=== PATIENT | female | born 1975 | race Caucasian/White ===

== ENCOUNTER 2024-04-06 06:48 | Outpatient (OUT) | payer BC, SELFPAY ==
[2024-04-06 07:43] LABS: Basophils Absolute Auto 0.1 10^3/uL (0.0-0.1); Basophils Percent Auto 0.7 % (0.2-2.0); Eosinophils Absolute Auto 0.6 10^3/uL (0.0-0.7); Hemoglobin 12.9 g/dL (12.0-16.0); Immature Granulocytes Abs Auto 0.03 10^3/uL (0.00-0.03); Immature Granulocytes Pct Auto 0.3 % (0.0-0.5); Lymphocytes Absolute Auto 2.4 10^3/uL (1.2-3.8); Lymphocytes Percent Auto 24.4 % (20.5-60.0); Mean Corpuscular HGB Conc 33.1 g/dL (29.9-35.2); Mean Corpuscular Hemoglobin 30.5 pg (26.7-34.0); Mean Corpuscular Volume 92.2 fL (81.0-99.0); Mean Platelet Volume 9.2 fL (9.5-13.5); Monocytes Absolute Auto 0.5 10^3/uL (0.3-0.8); Monocytes Percent Auto 5.6 % (1.7-12.0); Neutrophils Absolute Auto 6.1 10^3/uL (1.4-6.5); Platelet Count 368 10^3/uL (150-450); Red Blood Count 4.23 10^6/uL (4.20-5.40); Red Cell Distribution Width 13.1 % (11.0-15.0); White Blood Count 9.6 10^3/uL (4.0-11.0)
[2024-04-06 11:03] LABS: Estimated Average Glucose 114 mg/dL; Glycohemoglobin A1C 5.6 % (4.5-6.2)
[2024-04-06 12:16] LABS: Alanine Aminotransferase 23 U/L (14-59); Albumin Globulin Ratio 0.9; Albumin Level 3.4 g/dL (3.4-5.0); Alkaline Phosphatase 82 U/L (46-116); Anion Gap 13.5; Aspartate Amino Transferase 11 U/L (15-37); BUN Creatinine Ratio 17.5; Bilirubin Total 0.3 mg/dL (0.2-1.0); Calcium 9.2 mg/dL (8.5-10.1); Carbon Dioxide 27.4 mmol/L (21.0-32.0); Chloride 103 mmol/L (98-107); Chol HDL Ratio 3.9; Cholesterol 183 mg/dL (<=200); Estimated GFR (African America >60 (>=60); Estimated GFR (Non-African Ame >60 (>=60); Free T3 2.19 pg/mL (2.18-3.98); Globulin 3.6 g/dL; Glucose 87 mg/dL (74-106); HDL Cholesterol 47 mg/dL (40-60); Potassium 3.9 mmol/L (3.5-5.1); Sodium 140 mmol/L (136-145); Thyroid Stimulating Hormone 1.246 uIU/mL (0.358-3.740); Triglycerides 204 mg/dL (<=150); VLDL CHOLESTEROL 40.8 mg/dL
[2024-04-08 13:07] LABS: Insulin 12.1 uIU/mL (2.6-24.9)
== END 2024-04-06 06:49 | disposition home or self-care (01) ==
LOC: LAB 06:54
PROVIDERS: PCP Family Medicine; Visit Provider Family Medicine
DX: Z00.00 Encounter for general adult medical examination without abnormal findings (principal); E78.5 Hyperlipidemia, unspecified; R73.9 Hyperglycemia, unspecified; D64.9 Anemia, unspecified; E55.9 Vitamin D deficiency, unspecified
CPT/HCPCS: 36415; 80053; 80061; 82306; 83036; 83525; 83540; 84436; 84443; 84481; 85025

== ENCOUNTER 2024-08-08 13:07 | Outpatient (OUT) | payer BC, SELFPAY ==
--- NOTE | 2024-08-08 13:12 | MM_ITS ---
Patient Name: MYA MOREL MR#: [id number] : 1975 Exam Date: 08/08/2024 Ordering Doctor: DR Jian Solano . RADIOLOGY REPORT PROCEDURE: MM TOMOSYNTHESIS SCREENING BI COMPARISON: MG MAMM SCREEN 3D NORBERTO CAD, 03/21/2022. MG MAMM SCREEN 3D NORBERTO CAD, 03/19/2021. INDICATIONS: Screening Calculator Name NCI Breast Cancer Risk Assessment Tool 5 Year Breast Cancer Risk 1.80% Lifetime Breast Cancer Risk 18.90% Personal Breast Cancer No Personal Ovarian Cancer No Treatments None Family Cancers Mother with breast cancer at age 57; Mother with throat cancer at age 69; Father with bladder cancer at age 72; Sister with skin cancer at age 47. LOCATION: [facility] BREAST COMPOSITION: There are scattered areas of fibroglandular density. FINDINGS: DIAGNOSTIC CATEGORY 2--BENIGN FINDING. NO CHANGE FROM COMPARISON. Scattered benign-appearing lymph nodes are present. Scattered benign-appearing calcifications are present. RIGHT BREAST: No significant suspicious finding. LEFT BREAST: No significant suspicious finding. RECOMMENDATIONS: ROUTINE MAMMOGRAM AND CLINICAL EVALUATION IN 12 MONTHS. PLEASE NOTE: A NORMAL MAMMOGRAM DOES NOT EXCLUDE THE POSSIBILITY OF BREAST CANCER. A CLINICALLY SUSPICIOUS PALPABLE LUMP SHOULD BE BIOPSIED. Dictated by: Tyler Stokes MD on 08/08/2024 at 14:14 Approved by: Tyler Stokes MD on 08/08/2024 at 14:15
== END 2024-08-08 13:08 | disposition home or self-care (01) ==
LOC: MAMMO 13:07
PROVIDERS: PCP Family Medicine; Visit Provider Family Medicine
DX: Z12.31 Encounter for screening mammogram for malignant neoplasm of breast (principal); Z80.3 Family history of malignant neoplasm of breast; Z80.52 Family history of malignant neoplasm of bladder; Z80.8 Family history of malignant neoplasm of other organs or systems
CPT/HCPCS: 77063; 77067

== ENCOUNTER 2025-01-09 17:59 | Emergency (ER) | payer BC, SELFPAY ==
[2025-01-09 18:06] VITALS: BP 172/118; PULSE 107; TEMP 36.7; O2SAT 97; BMI 37.1
--- OUTSIDE RECORDS SUMMARY | 2025-01-09 18:07 | XMS_ITS | CCD ---
Author Organization [facility] CliniSymt Care Team Providers Care Glass Products Inspector Name Role Phone PHYSICIAN, DEFAULT Unavailable Unavailable PHYSICIAN, DEFAULT Unavailable Unavailable HOY ., DR NAVARRO Primary Care Unavailable SANTO ., TITO Admitting Unavailable SANTO ., TITO Attending Unavailable ROLAND ., MR PAZ Consulting Unavailable HOY ., DR NAVARRO Consulting Unavailable HOY ., DR NAVARRO Attending Unavailable HOY ., DR NAVARRO Admitting Unavailable HOY ., DR NAVARRO Primary Care Unavailable REINECK, DR DEMI Cisneros Admitting Unavailabl e REINECK, DR DEMI Cisneros Consulting Unavailabl e REINECK, DR DEMI Cisneros Attending Unavailabl e HOY ., DR NAVARRO Primary Care Unavailable Problems Active Problems Problem Classification Problem Date Documented Da te Episodic/Chronic E Codes: Cut/pierceb (1 source) Contact with other sharp object(s), not elsewhere classified, initial encounter; Translations: [[facility] OTH SHRP OB NOT ELSW CLASS INI] Onset: 03-13-2023 Episodic Open wounds of extremities (4 sources) Laceration without foreign body of left wrist, initial encounter; Translations: [LACERATION W/O FB LT WRIST INITIAL] Onset: 03-09-2023 Episodic Substance-related disorders (1 source) Nicotine dependence, cigarettes, uncomplicated; Translations: [NICOTINE DEPEND CIGARETTES UNCOMP] Onset: 09-06-2022 Chronic Past or Other Problems Problem Classification Problem Date Documented Da te Episodic/Chronic Contraceptive and procreative management (1 source) Tubal ligation status; Translations: [TUBAL LIGATION STATUS] Onset: 09-06-2022 Episodic E Codes: Natural/environment (1 source) Exposure to other specified factors, initial encounter; Translations: [EXPOSURE OTHER SPEC FACTORS INITIAL] Onset: 09-06-2022 Episodic Immunizations and screening for infectious disease (1 source) Encounter for immunization; Translations: [ENCOUNTER FOR IMMUNIZATION] Onset: 09-06-2022 Episodic Inflammation; infection of eye (except that caused by tuberculosis or sexually transmitteddisease) (1 source) Unspecified conjunctivitis; Translations: [UNSPECIFIED CONJUNCTIVITIS] Onset: 09-06-2022 Episodic Other eye disorders (3 sources) Ocular pain, left eye; Translations: [OCULAR PAIN LEFT EYE] Onset: 09-04-2022 Episodic Superficial injury; contusion (1 source) Injury of conjunctiva and corneal abrasion without foreign body, left eye, initial encounter; Translations: [INJ CONJ AND CA W/O FB LT EYE INITIAL] Onset: 09-06-2022 Episodic Results Test Name Value Interpretation Reference Range Facil ity INSULINon 04-26-2023 Insulin 9.7 uIU/mL Normal 2.6-24.9 [facility] Comment on above: Performed By: #### I NSULIN #### [facility] [address] [place] [address] Dr. Gama Barron CBC AUTO DIFFon 04-25-2023 BASO # 0.1 103/ul Normal 0.0-0.1 [facility] Comment on above: Performed By: #### C BC #### [facility] [address] [place] [address] Dr. Gama Barron Basophils/100 WBC (Bld) 0.6 % Normal 0.2-2.0 [facility] Comment on above: Performed By: #### C BC #### [facility] [address] [place] [address] Dr. Gama Barron EO # 0.6 103/ul Normal 0.0-0.7 [facility] Comment on above: Performed By: #### C BC #### [facility] [address] [place] [address] Dr. Gama Barron Eosinophils/100 WBC (Bld) 5.4 % Normal 0.9-7.0 [facility] Comment on above: Performed By: #### C BC #### [facility] [address] [place] [address] Dr. Gama Barron Erythrocyte distribution width (RBC) [Ratio] 13.2 % Normal 11.0-15.0 [facility] Comment on above: Performed By: #### C BC #### [facility] [address] [place] [address] Dr. Gama Barron Hematocrit (Bld) [Volume fraction] 39.5 % Normal 36.0-48.0 [facility] Comment on above: Performed By: #### C BC #### [facility] [address] [place] [address] Dr. Gama Barron Hemoglobin (Bld) [Mass/Vol] 13.5 g/dL Normal 12.0-16.0 [facility] Comment on above: Performed By: #### C BC #### [facility] [address] [place] [address] Dr. Gama Barron IG # 0.03 10e3/ul Normal 0.00-0.03 [facility] Comment on above: Performed By: #### C BC #### [facility] [address] [place] [address] Dr. Gama Barron IG % 0.3 % Normal 0.0-0.5 [facility] Comment on above: Performed By: #### C BC #### [facility] [address] [place] [address] Dr. Gama Barron LYMPH # 2.9 103/ul Normal 1.2-3.8 [facility] Comment on above: Performed By: #### C BC #### [facility] [address] [place] [address] Dr. Gama Barron Lymphocytes/100 WBC (Bld) 25.8 % Normal 20.5-60.0 [facility] Comment on above: Performed By: #### C BC #### [facility] [address] [place] [address] Dr. Gama Barron MANUAL DIFF REQ NO Normal [facility] Comment on above: Performed By: #### C BC #### [facility] [address] [place] [address] Dr. Gama Barron MCH (RBC) [Entitic mass] 31.3 pg Normal 26.7-34.0 [facility] Comment on above: Performed By: #### C BC #### [facility] [address] [place] [address] Dr. Gama Barron MCHC (RBC) [Mass/Vol] 34.2 g/dL Normal 29.9-35.2 [facility] Comment on above: Performed By: #### C BC #### [facility] [address] [address] [address] Gama Barron MCV (RBC) [Entitic vol] 91.6 fL Normal 81.0-99.0 [facility] Comment on above: Performed By: #### C BC #### [facility] [address] [address] [address] Gama Barron MONO # 0.6 103/ul Normal 0.3-0.8 [facility] Comment on above: Performed By: #### C BC #### [facility] [address] [place] [address] Dr. Gama Barron Monocytes/100 WBC (Bld) 5.1 % Normal 1.7-12.0 [facility] Comment on above: Performed By: #### C BC #### [facility] [address] [place] [address] Dr. Gama Barron NEUT # 7.0 103/ul Critically high 1.4-6.5 [facility] Comment on above: Performed By: #### C BC #### [facility] [address] [place] [address] Dr. Gama Barron Neutrophils/100 WBC (Bld) 62.8 % Normal 43.0-75.0 [facility] Comment on above: Performed By: #### C BC #### [facility] [address] [place] [address] Dr. Gama Barron Platelet mean volume (Bld) [Entitic vol] 8.6 fL Critically low 9.5-13.5 [facility] Comment on above: Performed By: #### C BC #### [facility] [address] [place] [address] Dr. Gama Barron PLT 383 103/ul Normal 150-450 [facility] Comment on above: Performed By: #### C BC #### [facility] [address] [place] [address] Dr. Gama Barron RBC 4.31 106/ul Normal 4.20-5.40 [facility] Comment on above: Performed By: #### C BC #### [facility] [address] [address] [address] Gama Barron WBC 11.1 103/ul Critically high 4.0-11.0 [facility] Comment on above: Performed By: #### C BC #### [facility] [address] [address] [address] Gama Barron FREE T3on 04-25-2023 FREE T3 2.59 pg/mlL Normal 2.18-3.98 [facility] Comment on above: Performed By: #### F T3, TSH, CMP, LIPID, T4 #### [facility] [address] [place] [address] Dr. Gama Barron GLYCOHEMOGLOBIN A1Con 2022 ADA RECOMMENDATION SEE BELOW Normal [facility] Comment on above: Result Comment: ADA RECOMMENDED LIMIT 4.0 - 6.0 ADA THERAPEUTIC TARGET < 7.0 ACTION SUGGESTED > 7.0 Performed By: #### A 1C #### [facility] [address] [place] [address] Dr. Gama Barron Glucose [Mass/Vol] 103 mg/dL Normal [facility] Comment on above: Performed By: #### A 1C #### [facility] [address] [place] [address] Dr. Gama Barron HbA1c (Bld) [Mass fraction] 5.2 % Normal 4.5-6.2 [facility] Comment on above: Performed By: #### A 1C #### [facility] [address] [place] [address] Dr. Gama Barron IRONon 04-25-2023 Iron [Mass/Vol] 102.0 ug/dL Normal 50.0-170.0 [facility] Comment on above: Performed By: #### V ITAD, IRON #### [facility] [address] [place] [address] Dr. Gama Barron LIPID PROFILEon 04-25-2023 CHOL-HDL RATIO NORM SEE BELOW Normal [facility] Comment on above: Result Comment: 3.3 - 4.4 LOW RISK 4.4 - 7.1 AVERAGE RISK 7.1 - 11.0 MODERATE RISK >11.0 HIGH RISK Performed By: #### F T3, TSH, CMP, LIPID, T4 #### [facility] [address] [address] [address] Gama Barron Cholesterol [Mass/Vol] 193 mg/dL Normal <=200 [facility] Comment on above: Performed By: #### F T3, TSH, CMP, LIPID, T4 #### [facility] [address] [address] [address] Gama Barron Cholesterol in HDL [Mass/Vol] 39 mg/dL Critically low 40-60 [facility] Comment on above: Performed By: #### F T3, TSH, CMP, LIPID, T4 #### [facility] [address] [address] [address] Gama Barron Cholesterol in LDL [Mass/Vol] 115.6 mg/dL Normal [facility] Comment on above: Performed By: #### F T3, TSH, CMP, LIPID, T4 #### [facility] [address] [address] [address] Gama Barron Cholesterol.total/Cho lesterol in HDL [Mass ratio] 4.9 {ratio} Normal [facility] Comment on above: Performed By: #### F T3, TSH, CMP, LIPID, T4 #### [facility] [address] [address] [address] Gama Barron HDL NORMAL > or = 60 mg/dl - LOW CARDIOVASCULAR RISK <40 mg/dl - HIGH CARDIOVASCULAR RISK Normal [facility] Comment on above: Performed By: #### F T3, TSH, CMP, LIPID, T4 #### [facility] [address] [address] [address] Gama Barron LDL CALC NORMAL SEE BELOW Normal [facility] Comment on above: Result Comment: <100 mg/dl OPTIMAL 100 - 129 mg/dl NEAR OR ABOVE OPTIMAL 130 - 159 mg/dl BORDERLINE HIGH 160 - 189 mg/dl HIGH >190 mg/dl VERY HIGH Performed By: #### F T3, TSH, CMP, LIPID, T4 #### [facility] [address] [place] [address] Dr. Gama Barron Triglyceride [Mass/Vol] 192 mg/dL Critically high <=150 [facility] Comment on above: Performed By: #### F T3, TSH, CMP, LIPID, T4 #### [facility] [address] [address] [address] Gama Barron VLDL CALC 38.4 mg/dL Normal [facility] Comment on above: Performed By: #### F T3, TSH, CMP, LIPID, T4 #### [facility] [address] [place] [address] Dr. Gama Barron PROF 14(COMP METB)on 023 Albumin [Mass/Vol] 3.3 g/dL Critically low 3.4-5.0 [facility] Comment on above: Performed By: #### F T3, TSH, CMP, LIPID, T4 #### [facility] [address] [place] [address] Dr. Gama Barron Albumin/Globulin [Mass ratio] 0.9 {ratio} Normal [facility] Comment on above: Performed By: #### F T3, TSH, CMP, LIPID, T4 #### [facility] [address] [place] [address] Dr. Gama Barron ALP [Catalytic activity/Vol] 88 U/L Normal 46-116 [facility] Comment on above: Performed By: #### F T3, TSH, CMP, LIPID, T4 #### [facility] [address] [place] [address] Dr. Gama Barron ALT [Catalytic activity/Vol] 19 U/L Normal 14-59 [facility] Comment on above: Performed By: #### F T3, TSH, CMP, LIPID, T4 #### [facility] [address] [place] [address] Dr. Gama Barron Anion gap [Moles/Vol] 12.2 mmol/L Normal [facility] Comment on above: Performed By: #### F T3, TSH, CMP, LIPID, T4 #### [facility] [address] [place] [address] Dr. Gama Barron AST [Catalytic activity/Vol] 13 U/L Critically low 15-37 [facility] Comment on above: Performed By: #### F T3, TSH, CMP, LIPID, T4 #### [facility] [address] [address] [address] Gama Barron Bilirubin [Mass/Vol] 0.3 mg/dL Normal 0.2-1.0 [facility] Comment on above: Performed By: #### F T3, TSH, CMP, LIPID, T4 #### [facility] [address] [address] [address] Gama Barron Calcium [Mass/Vol] 8.6 mg/dL Normal 8.5-10.1 [facility] Comment on above: Performed By: #### F T3, TSH, CMP, LIPID, T4 #### [facility] [address] [address] [address] Gama Barron Chloride [Moles/Vol] 102 mmol/L Normal 98-107 [facility] Comment on above: Performed By: #### F T3, TSH, CMP, LIPID, T4 #### [facility] [address] [address] [address] Gama Barron CO2 [Moles/Vol] 29.2 mmol/L Normal 21.0-32.0 [facility] Comment on above: Performed By: #### F T3, TSH, CMP, LIPID, T4 #### [facility] [address] [address] [address] Gama Barron Creatinine [Mass/Vol] 0.75 mg/dL Normal 0.55-1.02 [facility] Comment on above: Performed By: #### F T3, TSH, CMP, LIPID, T4 #### [facility] [address] [address] [address] Gama Barron EGFR-AF MONTSERRATIAN >60 Normal >=60 [facility] Comment on above: Performed By: #### F T3, TSH, CMP, LIPID, T4 #### [facility] [address] [address] [address] Gama Barron EGFR-NON AF MONTSERRATIAN >60 Normal >=60 [facility] Comment on above: Performed By: #### F T3, TSH, CMP, LIPID, T4 #### [facility] [address] [address] [address] Gama Barron Globulin (S) [Mass/Vol] 3.7 g/dL Normal [facility] Comment on above: Performed By: #### F T3, TSH, CMP, LIPID, T4 #### [facility] [address] [address] [address] Gama Barron Glucose [Mass/Vol] 93 mg/dL Normal 74-[address] [facility] Comment on above: Performed By: #### F T3, TSH, CMP, LIPID, T4 #### [facility] [address] [place] [address] Dr. Gama Barron Potassium [Moles/Vol] 4.4 mmol/L Normal 3.5-5.1 [facility] Comment on above: Performed By: #### F T3, TSH, CMP, LIPID, T4 #### [facility] [address] [place] [address] Dr. Gama Barron Protein [Mass/Vol] 7.0 g/dL Normal 6.4-8.[address] [facility] Comment on above: Performed By: #### F T3, TSH, CMP, LIPID, T4 #### [facility] [address] [place] [address] Dr. Gama Barron Sodium [Moles/Vol] 139 mmol/L Normal 136-[address] [facility] Comment on above: Performed By: #### F T3, TSH, CMP, LIPID, T4 #### [facility] [address] [place] [address] Dr. Gama Barron Urea nitrogen [Mass/Vol] 8.0 mg/dL Normal 7.0-18.0 [facility] Comment on above: Performed By: #### F T3, TSH, CMP, LIPID, T4 #### [facility] [address] [place] [address] Dr. Gama Barron Urea nitrogen/Creatinine [Mass ratio] 10.7 mg/mg Normal [facility] Comment on above: Performed By: #### F T3, TSH, CMP, LIPID, T4 #### [facility] [address] [address] [address] Gama Barron T4on 04-25-2023 T4 [Mass/Vol] 7.20 ug/dL Normal 4.80-13.90 [facility] Comment on above: Performed By: #### F T3, TSH, CMP, LIPID, T4 #### [facility] [address] [address] [address] Gama Barron TSHon 04-25-2023 TSH 2.554 uIU/mL Normal 0.358-3.740 [facility] Comment on above: Performed By: #### F T3, TSH, CMP, LIPID, T4 #### [facility] [address] [address] [address] Gama Barron VITAMIN D 25 OHon 04-25-2023 VIT D 25-OH 27.5 ng/mL Normal [facility] Comment on above: Performed By: #### V ITAD, IRON #### [facility] [address] [address] [address] Gama Barron VIT D RANGES SEE BELOW Normal [facility] Comment on above: Result Comment: <20 ng/mL Vit D deficient 20 - <30 ng/mL Vit D insufficient 30 - 100 ng/mL Vit D sufficient >100 ng/mL Potential Toxicity Performed By: #### V ITAD, IRON #### [facility] [address] [address] [address] Gama Barron Encounters Encounter Date Encounter Type Care Provider Facility Start: 04-26-2023 Encounter for genera l adult medical examination without abnormal findings DR MELANIE HERRERA . [facility] Start: 04-25-2023 End: 04-26-[address] MELANIE HERRERA . Facility[facility] Start: 04-25-2023 End: 04-26-2023 Encounter for general adult medical examination without abnormal findings DR MELANIE HERRERA . Facility:[facility] Start: 03-09-2023 End: 03-09-[address] DEMI ESPINOZA Facility:[facility] Start: 09-04-2022 End: 09-04-[address] MELANIE HERRERA . Facility:[facility] Start: 06-14-2017 End: 06-15-2017 Ambulatory DEFAULT PHYSICIAN Facility:[facility] Payers Date Payer Category Payer Unknown [id number] 1975 Unknown [id number] 1975 Unknown [id number] 1957 Unknown [id number] 1957 Unknown [id number] Unknown Summary Purpose Family History No Family History Records FoundNo Family History Records Found Advance Directives No Advanced Directives Records FoundNo Advanced Directives Records Found Additional Source Comments INFORMATION SOURCE (unrecogn ized section and content) DATE CREATED AUTHOR 05/23/2018 [facility] DATE CREATED AUTHOR AUTHOR'S RANDOLPH SEYMOUR 05/05/2023 [facility] FOR RECORDS PERTAINING TO PATIENTS WHO ARE OR HAVE BEEN ENROLLED IN A CHEMICAL DEPENDENCY/SUBSTANCEABUSE PROGRAM, SOME INFORMATION MAY BE OMITTED. This clinical summary was aggregated from multiple sources. Caution should be exercised in using it in the provision of clinical care. This summary normalizes information from multiple sources, and as a consequence, information in this document may materially change the coding, format and clinical context of patient data. In addition, data may be omitted in some cases. CLINICAL DECISIONS SHOULD BE BASED ON THE PRIMARY CLINICAL RECORDS. [facility] [employer] [facility]. provides no warranty or guarantee of the accuracy or completeness of information in this document.
--- NOTE | 2025-01-09 18:13 | CT_ITS ---
The [address] [address] Patient Name: MYA MOREL MRN: [id number] date: 1975 Sex: F Assigned Patient Location: ER Current Patient Location: ER Accession/Order Number: [id number] Exam Date: 01/09/2025 18:25 Report Date: 01/09/2025 18:55 At the request of: FRENCH CAMPA Procedure: CT head/brain wo con EXAM: CT head/brain wo con HISTORY: Fall COMPARISON: None. TECHNIQUE: Axial CT scans through the head were obtained without IV contrast administration. Dose reduction techniques were achieved by using: automated exposure control and/or adjustment of mA and /or kV according to patient size and/or use of iterative reconstruction technique. FINDINGS: There is no acute intracranial hemorrhage or abnormal extra-axial fluid collection. No mass effect or midline shift is seen. There is no evidence of large acute territorial infarction. There is no hydrocephalus. To the limit of CT, the posterior fossa appears unremarkable. There is expanded empty sella. The calvaria and extra cranial soft tissues are unremarkable. The visualized orbits show no abnormality. The visualized paranasal sinuses show no air-fluid level. There are mild mucosal thickening of bilateral maxillary and sphenoid sinuses. Mastoid air cells are clear. CT/CT head/brain wo con IMPRESSION: No acute intracranial process. Electronically authenticated by: JOHN LOPEZ Date: 01/09/2025 18:55
--- NOTE | 2025-01-09 18:13 | CT_ITS ---
The [address] [address] Patient Name: MYA MOREL MRN: [id number] date: 1975 Sex: F Assigned Patient Location: ER Current Patient Location: Accession/Order Number: [id number] Exam Date: 01/09/2025 18:25 Report Date: 01/09/2025 19:41 At the request of: FRENCH CAMPA Procedure: CT cervical spine wo con EXAM: CT cervical spine wo con HISTORY: Fall. TECHNIQUE: Axial CT scans through the cervical spine were obtained without contrast administration. Sagittal and coronal reconstruction images were obtained. Dose reduction techniques were achieved by using: automated exposure control and/or adjustment of mA and /or kV according to patient size and/or the use of an iterative reconstruction technique. COMPARISON: None. FINDINGS: No fracture or posttraumatic malalignment is shown. Straightening of the cervical spine is present. The intracanalicular compartment appears unremarkable. Moderate to severe stenosis of the right C2-C3, C3-C4 and C4-C5 neural foramina secondary to uncovertebral hypertrophy and severe right facet hypertrophy. Moderate right C5-C6 facet arthropathy. The prevertebral soft tissue space appears normal. Visualized intracranial contents appear normal. The visualized neck shows no adenopathy. Visualized lung apices are clear. CT/CT cervical spine wo con IMPRESSION: No acute fracture or posttraumatic malalignment. Straightening of the cervical spine, likely due to positioning or muscle spasm. Moderate to severe stenosis of the right C2-C3, C3-C4 and C4-C5 neural foramina secondary to uncovertebral hypertrophy and severe right facet hypertrophy. Moderate right C5-C6 facet arthropathy. Electronically authenticated by: SU SARAVIA Date: 01/09/2025 19:41
--- NOTE | 2025-01-09 18:14 | ED_ITS ---
HPI HPI - Head Injury General Chief complaint: Head Injury Stated complaint: fell-head injury Time Seen by Provider: 01/09/25 18:13 Mode of arrival: walk-in History of Present Illness HPI Narrative: 49 year old female presents to the ED for a head injury, scalp laceration. She slipped on ice today and fell, hitting the back of her head. Denies LOC, vision changes, weakness, dizziness, N/V. Denies pain to her neck, back, extremities, chest, abdomen. States her last tetanus update was 2 years ago. Related Data Allergies Allergy/AdvReac Type Severity Reaction Status Date / Time No Known Drug Allergies Allergy Verified 01/09/25 18:06 Opioid HPI Opioid Management Most Recent Pain and Opioid Data: No Data to Display Review of Systems ROS Constitutional Denies: fever or chills Ears, nose, mouth, and throat Denies: neck pain Cardiovascular Denies: chest pain Respiratory Denies: shortness of breath Gastrointestinal Denies: abdominal pain, nausea or vomiting Integumentary/Breast Reports: other (Scalp laceration) Neurological Reports: headache; Denies: numbness in extremities, weakness in extremities, dizziness or confusion PFSH PFSH Social History Little interest or pleasure in doing things: not at all Feeling down, depressed, or hopeless: not at all Exam Constitutional Vital Signs, click to edit/add: Last Vital Signs Temp 98.1 F 01/09/25 18:06 Pulse 107 H 01/09/25 18:06 Resp 18 01/09/25 18:06 BP 172/118 H 01/09/25 18:06 Pulse Ox 97 01/09/25 18:06 O2 Del Method Room Air 01/09/25 18:06 Common normals: no apparent distress and oriented x3 General appearance: cooperative [facility] Common normals: moist oral mucous membranes Nose: no epistaxis External ear: external ears normal Mouth: oral and palatal mucosa normal, lip normal and tongue normal Other: 4 cm posterior vertical scalp laceration noted. Minimal bleeding. Closure indicated. Wound appears superficial. Eye Common normals: PERRL, EOMs intact bilaterally, conjunctivae normal and no scleral icterus Neck & C-Spine General: normal visual inspection Cervical spine: no cervical spine tenderness and no paracervical muscle tenderness Respiratory Common normals: normal respiratory effort Effort & inspection: able to speak in complete sentences and symmetric chest movement Cardio Common normals: regular rate Back & Pelvis Thoracic spine/upper back: no thoracic spinal tenderness, no paraspinal muscle tenderness and no paraspinal muscle spasm Lumbar spine/lower back: no lumbar spinal tenderness, no paraspinal muscle tenderness and no paraspinal muscle spasm Neuro Common normals: oriented x3, CN's II-XII intact bilaterally, moves all extremities and no focal motor deficits Sensorium/orientation: awake and alert Speech: speech normal Gait (neuro): normal gait Course Vital Signs Vital signs: Vital Signs Temperature 98.1 F 01/09/25 18:06 Pulse Rate 107 H 01/09/25 18:06 Respiratory Rate 18 01/09/25 18:06 Blood Pressure 172/118 H 01/09/25 18:06 Pulse Oximetry 97 01/09/25 18:06 Oxygen Delivery Method Room Air 01/09/25 18:06 Temperature 98.1 F 01/09/25 18:06 Pulse Rate 107 H 01/09/25 18:06 Respiratory Rate 18 01/09/25 18:06 Blood Pressure 172/118 H 01/09/25 18:06 Pulse Oximetry 97 01/09/25 18:06 Oxygen Delivery Method Room Air 01/09/25 18:06 MDM - Head Injury MDM Narrative Medical decision making narrative: Imaging showed no acute intracranial process; straightening of the cervical spine. Her wound was cleansed and bertha were placed. Follow up with pcp for a recheck, further evaluation and treatment. Staple removal in 7-10 days. Medical Records Attestation: I reviewed the patient's medical records. Imaging Data CT scan - head: Attestation: I have reviewed the pertinent imaging results. Radiologist's impression: ITS Impressions Cervical Spine CT 01/09/25 18:13 IMPRESSION: No acute fracture or posttraumatic malalignment. Straightening of the cervical spine, likely due to positioning or muscle spasm. Moderate to severe stenosis of the right C2-C3, C3-C4 and C4-C5 neural foramina secondary to uncovertebral hypertrophy and severe right facet hypertrophy. Moderate right C5-C6 facet arthropathy. Electronically authenticated by: SU SARAVIA Date: 01/09/2025 19:[address] 01/09/25 18:13 IMPRESSION: No acute intracranial process. Electronically authenticated by: JOHN LOPEZ Date: 01/09/2025 18:55 Discharge Plan Discharge Chief Complaint: Head Injury Clinical Impression: Head injury, Laceration of scalp Patient Disposition: Home, Self-Care Time of Disposition Decision: 19:47 Condition: Good Mode of Transportation: Private Vehicle Print Language: [place] Instructions: Laceration (ED), Head Injury (ED), Staple Care (ED) Additional Instructions: Return to the ER for worsening symptoms. The bertha will need to be removed in 7-10 days. Watch for signs of infection: redness, purulent drainage, swelling. Referrals: Jian Solano MD [Primary Care Provider] - 1 week Procedures ED Laceration Laceration Laceration 1: Size (cm): 4 Description: linear (vertical) Additional comments: The laceration was irrigated with saline and anesthetized with LET. Eight bertha were inserted. She tolerated the procedure well.
[2025-01-09] MEDS: LIDOCAINE/EPINEPHRINE/TETRACAINE 3 ML GEL.PF.APP TOPICAL (18:45)
--- NOTE | 2025-01-09 19:14 | PC.NURSE ---
Drury to occipital area intact. Awaiting disposition.
[2025-01-09 20:10] VITALS: BP 154/88
== END 2025-01-09 20:05 | disposition home or self-care (01) ==
PROVIDERS: Emergency Provider Emergency Medicine; PCP Family Medicine
DX: S01.01XA Laceration without foreign body of scalp, initial encounter (principal); S09.90XA Unspecified injury of head, initial encounter; W00.0XXA Fall on same level due to ice and snow, initial encounter; M48.02 Spinal stenosis, cervical region
CPT/HCPCS: 12002; 70450; 72125; 99284

== ENCOUNTER 2025-05-09 08:30 | Outpatient (OUT) | payer BC, SELFPAY ==
--- OUTSIDE RECORDS SUMMARY | 2025-05-09 08:39 | XMS_ITS | CCD ---
Author Organization [facility] Care Team Providers Care Tub Washer Name Role Phone PHYSICIAN, DEFAULT Unavailable Unavailable PHYSICIAN, DEFAULT Unavailable Unavailable SHARON ., DR NAVARRO Primary Care Unavailable SANTO ., TITO Admitting Unavailable SANTO ., TITO Attending Unavailable ASUNCION ., MR PAZ Consulting Unavailable HOY ., DR NAVARRO Consulting Unavailable SHARON ., DR NAVARRO Attending Unavailable SHARON ., DR NAVARRO Admitting Unavailable SHARON ., DR NAVARRO Primary Care Unavailable OLGA, DR DEMI Cisneros Admitting Unavailabl e OLGA, DR DEMI Cisneros Consulting Unavailabl e OLGA, DR DEMI Cisneros Attending Unavailabl e SHARON ., DR NAVARRO Primary Care Unavailable MELANIE HERRERA Unavailable Medications Current Medications Medication Drug Class(es) Dates Sig (Normalized) Sig (Original) amLODIPine 5 mg oral tablet (2 sources) Dihydropyridine Calcium Channel Zenia End: 04-22-2025 take 1 tablet by mouth once daily amlodipine 5 mg tablet TAKE 1 TABLET BY MOUTH ONCE DAILY 04/22/2025 completed Not Available Not Available Not Available take 1 tablet by mouth once sarah y amlodipine 10 mg tablet TAKE 1 TABLET BY MOUTH DAILY active Not Available Not Available Not Available carvedilol 25 mg oral tablet (2 sources) alpha-Adrenergic Zenia, beta-Adrenergic Zenia End: 04-22-2025 take 2 tablets by mouth twice daily at mealtime carvedilol 6.25 mg tablet TAKE 2 TABLETS BY MOUTH TWICE DAILY WITH FOOD 04/22/2025 completed Not Available Not Available Not Available take 1 tablet by mahogany th twice daily at mealtime carvedilol 25 mg tablet TAKE 1 TABLET BY MOUTH TWICE DAILY WITH FOOD active Not Available Not Available Not Available diclofenac sodium 75 mg delayed release oral tablet (1 source) Nonsteroidal Anti-inflammatory Drug take 1 tablet by mouth twice daily diclofenac sodium 75 mg tablet,delayed release TAKE 1 TABLET BY MOUTH TWICE DAILY active Not Available Not Available Not Available irbesartan 300 mg oral tablet (1 source) Angiotensin 2 Receptor Zenia take 1 tablet by mouth once daily irbesartan 300 mg tablet TAKE 1 TABLET BY MOUTH DAILY active Not Available Not Available Not Available lisinopril 20 mg oral tablet (2 sources) Angiotensin Converting Enzyme Inhibitor End: 04-22-20 25 take 1 tablet by mouth once daily lisinopril 10 mg tablet TAKE 1 TABLET BY MOUTH DAILY 04/22/2025 completed Not Available Not Available Not Available End: 04-22-2025 take 1 tablet by mouth once daily lisinopril 20 mg tablet TAKE 1 TABLET BY MOUTH DAILY 04/22/2025 completed Not Available Not Available Not Available omeprazole 40 mg delayed release oral capsule (1 source) Proton Pump Inhibitor take 1 capsule by mouth 30 minutes before mealtime omeprazole 40 mg capsule,delayed release TAKE 1 CAPSULE BY MOUTH 30 minutes BEFORE meal active Not Available Not Available Not Available tiZANidine 4 mg oral tablet (1 source) Central alpha-2 Adrenergic Agonist End: take 1 tablet by mouth at bedtime as needed tizanidine 4 mg tablet TAKE 1 TABLET BY MOUTH AT BEDTIME NEEDED 04/22/2025 completed Not Available Not Available Not Available 24 hr venlafaxine 75 mg extended release oral capsule (1 source) Serotonin and Norepinephrine Reuptake Inhibitor take 3 capsules by mouth once daily at mealtime venlafaxine ER 75 mg capsule,extended release 24 hr TAKE 3 CAPSULES BY MOUTH WITH FOOD DAILY active Not Available Not Available Not Available Problems Active Problems Problem Classification Problem Date Documented Date Episodic/Chronic E Codes: Cut/pierceb (1 source) Contact with other sharp object(s), not elsewhere classified, initial encounter; Translations: [[facility] OTH SHRP OB NOT ELSW CLASS INI] Onset: 03-13-2023 Episodic Esophageal disorders (1 source) Gastroesophageal reflux disease Onset: 12-02-2024 Chronic Mood disorders (1 source) Depressive disorder Onset: 12-02-2024 Chronic Open wounds of extremities (4 sources) Laceration without foreign body of left wrist, initial encounter; Translations: [LACERATION W/O FB LT WRIST INITIAL] Onset: 03-09-2023 Episodic Osteoarthritis (1 source) Osteoarthritis Onset: 12-02-2024 Chronic Substance-related disorders (1 source) Nicotine dependence, cigarettes, [...] Results Test Name Value Interpretation Reference Range Facility hearing screening*on 025 Unknown Analyte Pass Invalid Interpretation Code [facility] urinalysis, dipstickon 04-22 Appearance (U) Clear Invalid Interpretation Code [facility] Color (U) Yellow Invalid Interpretation Code [facility] Glucose Ql (U) Negative Invalid Interpretation Code [facility] INSULINon 04-26-2023 Insulin 9.7 uIU/mL Normal 2.6-24.9 [facility] Comment on above: Performed By: #### I NSULIN #### [facility] [address], [place] [address] Dr. Gama Barron CBC AUTO DIFFon 04-25-2023 BASO # 0.1 103/ul Normal 0.0-0.1 [facility] Comment on above: Performed By: #### C BC #### [facility] [address], [place] [address] Dr. Gama Barron Basophils/100 WBC (Bld) 0.6 % Normal 0.2-2.0 [facility] Comment on above: Performed By: #### C BC #### [facility] [address] [place] [address] Dr. Gama Barron EO # 0.6 103/ul Normal 0.0-0.7 [facility] Comment on above: Performed By: #### C BC #### [facility] [address] [place] [address] Dr. Gama Barron Eosinophils/100 WBC (Bld) 5.4 % Normal 0.9-7.0 [facility] Comment on above: Performed By: #### C BC #### [facility] [address] [place] [address] Dr. Gama Barron Erythrocyte distribution width (RBC) [Ratio] 13.2 % Normal 11.0-15.0 [facility] Comment on above: Performed By: #### C BC #### [facility] [address] [place] [address] Dr. Gama Barron Hematocrit (Bld) [Volume fraction] 39.5 % Normal 36.0-48.0 [facility] Comment on above: Performed By: #### C BC #### [facility] [address] [place] [address] Dr. Gama Barron Hemoglobin (Bld) [Mass/Vol] 13.5 g/dL Normal 12.0-16.0 [facility] Comment on above: Performed By: #### C BC #### [facility] [address] [place] [address] Dr. Gama Barron IG # 0.03 10e3/ul Normal 0.00-0.03 [facility] Comment on above: Performed By: #### C BC #### [facility] [address] [place] [address] Dr. Gama Barron IG % 0.3 % Normal 0.0-0.5 [facility] Comment on above: Performed By: #### C BC #### [facility] [address] [place] [address] Dr. Gama Barron LYMPH # 2.9 103/ul Normal 1.2-3.8 [facility] Comment on above: Performed By: #### C BC #### [facility] [address] [place] [address] Dr. Gama Barron Lymphocytes/100 WBC (Bld) 25.8 % Normal 20.5-60.0 [facility] Comment on above: Performed By: #### C BC #### [facility] [address] [place] [address] Dr. Gama Barron MANUAL DIFF REQ NO Normal [facility] Comment on above: Performed By: #### C BC #### [facility] [address] [place] [address] Dr. Gama Barron MCH (RBC) [Entitic mass] 31.3 pg Normal 26.7-34.0 [facility] Comment on above: Performed By: #### C BC #### [facility] [address] [place] [address] Dr. Gama Barron MCHC (RBC) [Mass/Vol] 34.2 g/dL Normal 29.9-35.2 [facility] Comment on above: Performed By: #### C BC #### [facility] [address] [place] [address] Dr. Gama Barron MCV (RBC) [Entitic vol] 91.6 fL Normal 81.0-99.0 [facility] Comment on above: Performed By: #### C BC #### [facility] [address] [place] [address] Dr. Gama Barron MONO # 0.6 103/ul Normal 0.3-0.8 [facility] Comment on above: Performed By: #### C BC #### [facility] [address] [place] [address] Dr. Gama Barron Monocytes/100 WBC (Bld) 5.1 % Normal 1.7-12.0 [facility] Comment on above: Performed By: #### C BC #### [facility] [address] [place] [address] Dr. Gama Barron NEUT # 7.0 103/ul Critically high 1.4-6.5 [facility] [place] [facility] Comment on above: Performed By: #### C BC #### [facility] [address] [place] [address] [address] Gama Barron Neutrophils/100 WBC (Bld) 62.8 % Normal 43.0-75.0 [facility] Comment on above: Performed By: #### C BC #### [facility] [address] [address] [address] Gama Barron Platelet mean volume (Bld) [Entitic vol] 8.6 fL Critically low 9.5-13.5 [facility] Comment on above: Performed By: #### C BC #### [facility] [address] [address] [address] Gama Barron PLT 383 103/ul Normal 150-450 [facility] Comment on above: Performed By: #### C BC #### [facility] [address] [place] [address] Dr. Gama Barron RBC 4.31 106/ul Normal 4.20-5.40 [facility] Comment on above: Performed By: #### C BC #### [facility] [address] [place] [address] Dr. Gama Barron WBC 11.1 103/ul Critically high 4.0-11.0 [facility] Comment on above: Performed By: #### C BC #### [facility] [address] [place] [address] Dr. Gama Barron FREE T3on 04-25-2023 FREE T3 2.59 pg/mlL Normal 2.18-3.98 [facility] Comment on above: Performed By: #### F T3, TSH, CMP, LIPID, T4 #### [facility] [address] [place] [address] Dr. Gama Barron GLYCOHEMOGLOBIN A1Con 2022 ADA RECOMMENDATION SEE BELOW Normal [facility] Comment on above: Result Comment: ADA RECOMMENDED LIMIT 4.0 - 6.0 ADA THERAPEUTIC TARGET < 7.0 ACTION SUGGESTED > 7.0 Performed By: #### A 1C #### [facility] [address] [place] [address] Dr. Gama Barron Glucose [Mass/Vol] 103 mg/dL Normal [facility] Comment on above: Performed By: #### A 1C #### [facility] [address] [address] [address] Gama Barron HbA1c (Bld) [Mass fraction] 5.2 % Normal 4.5-6.2 [facility] Comment on above: Performed By: #### A 1C #### [facility] [address] [address] [address] Gama Barron IRONon 04-25-2023 Iron [Mass/Vol] 102.0 ug/dL Normal 50.0-170.0 [facility] Comment on above: Performed By: #### V ITAD, IRON #### [facility] [address] [place] [address] Dr. Gama Barron LIPID PROFILEon 04-25-2023 CHOL-HDL RATIO NORM SEE BELOW Normal [facility] Comment on above: Result Comment: 3.3 - 4.4 LOW RISK 4.4 - 7.1 AVERAGE RISK 7.1 - 11.0 MODERATE RISK >11.0 HIGH RISK Performed By: #### F T3, TSH, CMP, LIPID, T4 #### [facility] [address] [address] [address] Gama Barron Cholesterol [Mass/Vol] 193 mg/dL Normal <=200 [facility] Comment on above: Performed By: #### F T3, TSH, CMP, LIPID, T4 #### [facility] [address] [address] [address] Gama Barron Cholesterol in HDL [Mass/Vol] 39 mg/dL Critically low 40-60 [facility] Comment on above: Performed By: #### F T3, TSH, CMP, LIPID, T4 #### [facility] [address] [address] [address] Gama Barron Cholesterol in LDL [Mass/Vol] 115.6 mg/dL Normal [facility] Comment on above: Performed By: #### F T3, TSH, CMP, LIPID, T4 #### [facility] [address] [address] [address] Gama Barron Cholesterol.total/Ch olesterol in HDL [Mass ratio] 4.9 {ratio} Normal [facility] Comment on above: Performed By: #### F T3, TSH, CMP, LIPID, T4 #### [facility] [address] [address] [address] Gama Barron HDL NORMAL > or = 60 mg/dl - LOW CARDIOVASCULAR RISK <40 mg/dl - HIGH CARDIOVASCULAR RISK Normal [facility] Comment on above: Performed By: #### F T3, TSH, CMP, LIPID, T4 #### [facility] [address] [place] [address] Dr. Gama Barron LDL CALC NORMAL SEE BELOW Normal [facility] [place] [facility] Comment on above: Result Comment: <100 mg/dl OPTIMAL 100 - 129 mg/dl NEAR OR ABOVE OPTIMAL 130 - 159 mg/dl BORDERLINE HIGH 160 - 189 mg/dl HIGH >190 mg/dl VERY HIGH Performed By: #### F T3, TSH, CMP, LIPID, T4 #### [facility] [address] [place] [address] Dr. Gama Barron Triglyceride [Mass/Vol] 192 mg/dL Critically high <=150 [facility] Comment on above: Performed By: #### F T3, TSH, CMP, LIPID, T4 #### [facility] [address] [place] [address] Dr. Gama Barron VLDL CALC 38.4 mg/dL Normal [facility] Comment on above: Performed By: #### F T3, TSH, CMP, LIPID, T4 #### [facility] [address] [place] [address] Dr. Gama Barron PROF 14(COMP METB)on 023 Albumin [Mass/Vol] 3.3 g/dL Critically low 3.4-5.0 Th e [facility] Comment on above: Performed By: #### F T3, TSH, CMP, LIPID, T4 #### [facility] [address] [place] [address] Dr. Gama Barron Albumin/Globulin [Mass ratio] 0.9 {ratio} Normal [facility] Comment on above: Performed By: #### F T3, TSH, CMP, LIPID, T4 #### [facility] [address] [address] [address] Gama Barron ALP [Catalytic activity/Vol] 88 U/L Normal 46-116 [facility] Comment on above: Performed By: #### F T3, TSH, CMP, LIPID, T4 #### [facility] [address] [address] [address] Gama Barron ALT [Catalytic activity/Vol] 19 U/L Normal 14-59 [facility] Comment on above: Performed By: #### F T3, TSH, CMP, LIPID, T4 #### [facility] [address] [address] [address] Gama Barron Anion gap [Moles/Vol] 12.2 mmol/L Normal [facility] Comment on above: Performed By: #### F T3, TSH, CMP, LIPID, T4 #### [facility] [address] [place] [address] Dr. Gama Barron AST [Catalytic activity/Vol] 13 U/L Critically low 15-37 [facility] Comment on above: Performed By: #### F T3, TSH, CMP, LIPID, T4 #### [facility] [address] [address] [address] Gama Barron Bilirubin [Mass/Vol] 0.3 mg/dL Normal 0.2-1.0 [facility] Comment on above: Performed By: #### F T3, TSH, CMP, LIPID, T4 #### [facility] [address] [address] [address] Gama Barron Calcium [Mass/Vol] 8.6 mg/dL Normal 8.5-10.1 [facility] Comment on above: Performed By: #### F T3, TSH, CMP, LIPID, T4 #### [facility] [address] [address] [address] Gama Barron Chloride [Moles/Vol] 102 mmol/L Normal 98-107 [facility] Comment on above: Performed By: #### F T3, TSH, CMP, LIPID, T4 #### [facility] [address] [address] [address] Gama Barron CO2 [Moles/Vol] 29.2 mmol/L Normal 21.0-32.0 [facility] Comment on above: Performed By: #### F T3, TSH, CMP, LIPID, T4 #### [facility] [address] [address] [address] Gama Barron Creatinine [Mass/Vol] 0.75 mg/dL Normal 0.55-1.02 [facility] Comment on above: Performed By: #### F T3, TSH, CMP, LIPID, T4 #### [facility] [address] [address] [address] Gama Barron EGFR-AF SOUTH AFRICAN >60 Normal >=60 [facility] Comment on above: Performed By: #### F T3, TSH, CMP, LIPID, T4 #### [facility] [address] [place] [address] Dr. Gama Barron EGFR-NON AF SOU[place] AFR[place] >60 Normal >=60 [facility] Comment on above: Performed By: #### F T3, TSH, CMP, LIPID, T4 #### [facility] [address] [place] [address] Dr. Gama Barron Globulin (S) [Mass/Vol] 3.7 g/dL Normal [facility] Comment on above: Performed By: #### F T3, TSH, CMP, LIPID, T4 #### [facility] [address] [place] [address] Dr. Gama Barron Glucose [Mass/Vol] 93 mg/dL Normal 74-106 [facility] Comment on above: Performed By: #### F T3, TSH, CMP, LIPID, T4 #### [facility] [address] [place] [address] Dr. Gama Barron Potassium [Moles/Vol] 4.4 mmol/L Normal 3.5-5.1 [facility] Comment on above: Performed By: #### F T3, TSH, CMP, LIPID, T4 #### [facility] [address] [place] [address] Dr. Gama Barron Protein [Mass/Vol] 7.0 g/dL Normal 6.4-8.2 [facility] Comment on above: Performed By: #### F T3, TSH, CMP, LIPID, T4 #### [facility] [address] [place] [address] Dr. Gama Barron Sodium [Moles/Vol] 139 mmol/L Normal 136-145 [facility] Comment on above: Performed By: #### F T3, TSH, CMP, LIPID, T4 #### [facility] [address] [place] [address] Dr. Gama Barron Urea nitrogen [Mass/Vol] 8.0 mg/dL Normal 7.0-18.0 [facility] Comment on above: Performed By: #### F T3, TSH, CMP, LIPID, T4 #### [facility] [address] [place] [address] Dr. Gama Barron Urea nitrogen/Creatinine [Mass ratio] 10.7 mg/mg Normal [facility] Comment on above: Performed By: #### F T3, TSH, CMP, LIPID, T4 #### [facility] [address] [place] [address] Dr. Gama Barron T4on 04-25-2023 T4 [Mass/Vol] 7.20 ug/dL Normal 4.80-13.90 [facility] Comment on above: Performed By: #### F T3, TSH, CMP, LIPID, T4 #### [facility] [address] [place] [address] Dr. Gama Barron TSHon 04-25-2023 TSH 2.554 uIU/mL Normal 0.358-3.740 [facility] Comment on above: Performed By: #### F T3, TSH, CMP, LIPID, T4 #### [facility] [address] [place] [address] Dr. Gama Barron VITAMIN D 25 OHon 04-25-2023 VIT D 25-OH 27.5 ng/mL Normal [facility] Comment on above: Performed By: #### V ITAD, IRON #### [facility] [address] [place] [address] Dr. Gama Barron VIT D RANGES SEE BELOW Normal [facility] Comment on above: Result Comment: <20 ng/mL Vit D deficient 20 - <30 ng/mL Vit D insufficient 30 - 100 ng/mL Vit D sufficient >100 ng/mL Potential Toxicity Performed By: #### V ITAD, IRON #### [facility] [address] [place] [address] Dr. Gama Barron Vital Signs Date Time Vital Sign Value Performing Clinician Faci lity 04-22-2025 01:00-0400 Body height 167.64 cm Tasha Chidi [place] [facility] 04-22-2025 01:00-0400 Body mass index (BMI) [Ratio] 33.8 kg/m2 Tasha Murillo [place] [facility] 04-22-2025 01:00-0400 Body surface area Derived from formula 2.1 m2 Tasha Murillo [place] [facility] 04-22-2025 01:00-0400 Body weight 95.07 kg [facility] 04-22-2025 01:00-0400 Diastolic blood pressure 76 mm[Hg] Tasha Murillo [place] [facility] 04-22-2025 01:00-0400 Heart rate 82 /min Tasha Murillo [place] [facility] 04-22-2025 01:00-0400 SaO2% (BldA) [Mass fraction] 96 % Tasha Chidi [place] [facility] 04-22-2025 01:00-0400 Systolic blood pressure 136 mm[Hg] Tasha Murillo [place] [facility] Encounters Encounter Date Encounter Type Care Provider Facility Start: 04-22-2025 Adult health examination Tsaha Murillo [place] [facility] Start: 04-22-2025 Tasha Murillo [place] [facility] Start: 04-26-2023 Encounter for genera l adult medical examination without abnormal findings DR MELANIE HERRERA . [facility] Start: 04-25-2023 End: 04-26-[address] MELANIE HERRERA . Facility:[facility] Start: 04-25-2023 End: 04-26-2023 Encounter for general adult medical examination without abnormal findings DR MELANIE HERRERA . Facility:[facility] Start: 03-09-2023 End: 03-09-[address] DEMI ESPINOZA Facility:[facility] Start: 09-04-2022 End: 09-04-[address] MELANIE HERRERA . Facility:[facility] Start: 06-14-2017 End: 06-15-2017 Ambulatory DEFAULT PHYSICIAN Facility:[facility] Plan of Treatment Date Care Activity Detail Author Start: 04-22-2025 urinalysis, dipstick [facility] Start: 04-22-2025 InPerson; Emp Physic al Other InPerson; Emp Physical Other [place] [facility] Patient Education [place] [facility] Immunizations Immunization Date Immunization Notes Care Provider Milan nayak 09-04-2022 diphtheria, tetanus toxoids and pertussis vaccine Tasha Murillo [place] [facility] 05-06-2021 SARS-COV-2 (COVID-19 ) vaccine, mRNA, spike protein, LNP, preservative free, 30 mcg/0.3mL dose Tasha Murillo [place] [facility] 04-15-2021 SARS-COV-2 (COVID-19 ) vaccine, mRNA, spike protein, LNP, preservative free, 30 mcg/0.3mL dose Tasha Murillo [place] [facility] Payers Date Payer Category Payer Unknown [id number] [id number] [id number] 1977 Unknown [id number] [id number] [id number] 1977 Unknown [id number] 1959 Unknown [id number] 1959 Unknown [id number] Unknown Self-pay [id number] Social History Date Type Detail Facility Tobacco Smoking Status [facility] Current Every [place] [facility] [place] Assigned At Unknown [place] [facility] Medical Equipment Procedure Code Equipment Code Equipment Original Text Equi pment Identifier Dates Procedure Implant ([id number]) Evaluation note Note Date & Type Note Facility Evaluation note No assessment recorded. [place] [facility] History general Narrative - Reported Note Date & Type Note Facility History general Narrative - Reported No medical history recorded. Gynecological HistoryNo gynecological history recorded. Obstetrics History GPAL:G 2 P 0 0 0 2 Living 2 Total 2 [place] [facility] Summary Purpose Family History Relationship Description Onset Age of this Age Resolved Age Notes LastModified by Organization Details LastModified Time Father Malignant neoplasm of urinary bladder [id number] Not available 2024 08:41:38 Father Coronary arterioscler osis [id number] Not available 2024 08:44:18 Mother Disorder of gallbladder [email or web address] Not available 04/2025 08:43:43 Mother Coronary arterioscler osis [id number] Not available 2024 08:44:25 Mother Malignant tumor of breast [id number] Not available 2024 08:45:10 Mother Malignant neoplasm of lung [id number] Not available 2024 08:45:23 Advance Directives No Advanced Directives Records FoundNo Advanced Directives Records Found Additional Source Comments INFORMATION SOURCE (unrecogn ized section and content) DATE CREATED AUTHOR 05/23/2018 [facility] DATE CREATED AUTHOR AUTHOR'S RANDOLPH ATION 05/05/2023 [facility] FOR RECORDS PERTAINING TO PATIENTS WHO ARE [...] BE BASED ON THE PRIMARY CLINICAL RECORDS. [facility] [employer] provides no warranty or guarantee of the accuracy or completeness of information in this document.
[2025-05-09 09:05] LABS: Basophils Absolute Auto 0.1 10^3/uL (0.0-0.1); Basophils Percent Auto 0.8 % (0.2-2.0); Eosinophils Absolute Auto 0.5 10^3/uL (0.0-0.7); Eosinophils Percent Auto 5.9 % (0.9-7.0); Hematocrit 37.9 % (36.0-48.0); Immature Granulocytes Abs Auto 0.03 10^3/uL (0.00-0.03); Immature Granulocytes Pct Auto 0.3 % (0.0-0.5); Lymphocytes Absolute Auto 2.7 10^3/uL (1.2-3.8); Mean Corpuscular HGB Conc 34.3 g/dL (29.9-35.2); Mean Corpuscular Hemoglobin 31.1 pg (26.7-34.0); Mean Corpuscular Volume 90.7 fL (81.0-99.0); Mean Platelet Volume 8.8 fL (9.5-13.5); Monocytes Absolute Auto 0.6 10^3/uL (0.3-0.8); Monocytes Percent Auto 6.5 % (1.7-12.0); Neutrophils Absolute Auto 5.2 10^3/uL (1.4-6.5); Neutrophils Percent Auto 56.5 % (43.0-75.0); Platelet Count 364 10^3/uL (150-450); Red Blood Count 4.18 10^6/uL (4.20-5.40); White Blood Count 9.1 10^3/uL (4.0-11.0)
--- NOTE | 2025-05-09 10:00 | CA_ITS ---
Patient Name: MYA MOREL MR#: [id number] : 1975 Exam Date: 05/09/2025 Ordering Doctor: DR MELANIE HERRERA . ECHOCARDIOGRAM REPORT PROCEDURE: CA ECHO DOPPLER COMPLETE INDICATIONS: Hypertension, smoker COMPARISON: None. DESCRIPTION: COMPLETE ECHOCARDIOGRAM Real-time transthoracic echocardiography with 2D, M-mode, spectral and color flow Doppler performed. QUALITY: Technical quality was good. LEFT VENTRICLE: Normal chamber size. Normal left ventricular wall thickness. LV EF: Global left ventricular systolic function is normal; visually estimated ejection fraction is 55 to 60%. No significant wall motion abnormalities. DIASTOLIC: Normal diastolic function. ATRIAL SEPTUM: Visually appears intact. LEFT ATRIUM: Normal chamber size. RIGHT ATRIUM: Normal chamber size. RIGHT VENTRICLE: Normal chamber size. Normal right ventricular systolic function. TRICUSPID VALVE: Normal mobility and thickness. No stenosis with trivial regurgitation. No evidence of pulmonary hypertension. RVSP 33 mmHg MITRAL VALVE: Normal mobility and thickness. No evidence of mitral valve stenosis. There is no mitral annular calcification. No mitral regurgitation. AORTIC VALVE: Normal trileaflet appearance. No visible sclerosis. Normal leaflet mobility. No evidence of aortic valve stenosis. No aortic regurgitation. AORTIC ROOT: Normal diameter and appearance. PULMONIC VALVE: Normal thickness and mobility. No stenosis. No regurgitation. PERICARDIUM: No evidence of pericardial effusion. IVC: Collapses with inspiration. IVC is normal in size. CONCLUSION: 1. Global left ventricular systolic function is normal; visually estimated ejection fraction is 55 to 60% 2. Normal right ventricular size and systolic function 3. Normal diastolic function 4. No significant valvular abnormalities Adult Echocardiography Procedure Report Left Ventricle LVEDD (3.7 - 5.6 cm): 4.87 cm LVESD (2.2 - 4.0 cm): 3.63 cm LVIVS thickness (0.6 - 1.2 cm): 0.91 cm LVPW thickness (0.5 - 1.0 cm): 1.10 cm e': 0.10 m/s E - e': 9.46 LVOT Max Gradient: 2.94 mm[Hg] LVOT Area (cm2): 0.86 m/s Peak Velocity (LVOT): 0.86 m/s Mean Velocity (LVOT): 0.59 m/s LVOT Diameter 2.40 cm Left Atrium LA Volume Index (2D A2C): 26.57 ml/m2 Left Atrium Systolic Dimension: 4.20 cm Mitral Valve MV E to A Ratio: 1.07 Mitral Valve A-Wave Peak Velocity: 0.92 m/s Mitral Valve E-Wave Peak Velocity: 0.99 m/s Right Ventricle Aorta AO Root Diam: 3.31 cm Aortic Valve AoV Area (Peak Rick): 2.71 cm2, 2.71 cm2 AoV Area (VTI): 2.54 cm2, 2.54 cm2 Peak Velocity(Antegrade Flow): 1.43 m/s Peak Gradient(Antegrade Flow): 8.16 mm[Hg] Mean Velocity(Antegrade Flow): 0.98 m/s Mean Gradient(Antegrade Flow): 4.37 mm[Hg] Velocity Time Integral: 33.11 cm Tricuspid Valve Peak Velocity (Regurgitant Flow): 2.76 m/s Pulmonic Valve Peak Gradient: 3.11 mm[Hg], 4.39 mm[Hg] Right Atrium Right Atrium Systolic Pressure: 26.34 ml, 26.34 ml Dictated by: Toan Watson M.D. on 05/09/2025 at 14:53 Approved by: Toan Watson M.D. on 05/09/2025 at 14:57
[2025-05-09 11:01] LABS: Alanine Aminotransferase 24 U/L (14-59); Albumin Globulin Ratio 0.9; Albumin Level 3.1 g/dL (3.4-5.0); Alkaline Phosphatase 93 U/L (46-116); Anion Gap 14.7; Aspartate Amino Transferase 12 U/L (15-37); BUN Creatinine Ratio 13.8; Bilirubin Total 0.4 mg/dL (0.2-1.0); Calcium 8.8 mg/dL (8.5-10.1); Carbon Dioxide 27.2 mmol/L (21.0-32.0); Chloride 104 mmol/L (98-107); Chol HDL Ratio 5.4; Cholesterol 215 mg/dL (<=200); Estimated GFR (African America >60 (>=60 mL/min/1.73m^2); Estimated GFR (Non-African Ame >60 (>=60 mL/min/1.73m^2); Free T3 1.52 pg/mL (2.18-3.98); Globulin 3.5 g/dL; Glucose 92 mg/dL (74-106); HDL Cholesterol 40 mg/dL (40-60); Potassium 3.9 mmol/L (3.5-5.1); Sodium 142 mmol/L (136-145); Thyroid Stimulating Hormone 1.782 uIU/mL (0.358-3.740); Total Protein 6.6 g/dL (6.4-8.2); Triglycerides 384 mg/dL (<=150); VLDL CHOLESTEROL 76.8 mg/dL
[2025-05-09 14:27] LABS: Estimated Average Glucose 117 mg/dL; Glycohemoglobin A1C 5.7 % (4.5-6.2)
== END 2025-05-09 08:31 | disposition home or self-care (01) ==
LOC: US 08:34
PROVIDERS: PCP Family Medicine; Visit Provider Family Medicine
DX: Z01.89 Encounter for other specified special examinations (principal); E78.1 Pure hyperglyceridemia; I10 Essential (primary) hypertension; Z12.11 Encounter for screening for malignant neoplasm of colon; R53.83 Other fatigue
CPT/HCPCS: 36415; 76775; 80053; 80061; 83036; 83880; 84436; 84443; 84481; 85025; 93306; 93975

== ENCOUNTER 2025-06-07 07:52 | Outpatient (OUT) | payer BC, SELFPAY ==
--- OUTSIDE RECORDS SUMMARY | 2025-06-07 07:55 | XMS_ITS | CCD ---
Author Organization [facility] Care Team Providers Care Supervisor Public Health Nursing Name Role Phone PHYSICIAN, DEFAULT Unavailable Unavailable [...] object(s), not elsewhere classified, initial encounter; Translations: [[facility] OTH SHRP OB NOT ELSW CLASS INI] [...] 025 Unknown Analyte Pass Invalid Interpretation Code [facility] urinalysis, dipstickon 04-22 Appearance (U) Clear Invalid Interpretation Code [facility] Color (U) Yellow Invalid Interpretation Code [facility] Glucose Ql (U) Negative Invalid Interpretation Code [facility] INSULINon 04-26-2023 Insulin 9.7 uIU/mL Normal 2.6-24.9 [facility] Comment on above: Performed By: #### I NSULIN #### [facility] [address] [place], [place] [address] Dr. Gama Barron CBC AUTO DIFFon 04-25-2023 BASO # 0.1 103/ul Normal 0.0-0.1 [facility] Comment on above: Performed By: #### C BC #### [facility] [address] [place], [place] [address] Dr. Gama Barron Basophils/100 WBC (Bld) 0.6 % Normal 0.2-2.0 [facility] Comment on above: Performed By: #### C BC #### [facility] [address] [place] [address] Dr. Gama Barron EO # 0.6 103/ul Normal 0.0-0.7 [facility] Comment on above: Performed By: #### C BC #### [facility] [address] [place] [address] Dr. Gama Barron Eosinophils/100 WBC (Bld) 5.4 % Normal 0.9-7.0 [facility] Comment on above: Performed By: #### C BC #### [facility] [address] [place] [address] Dr. Gama Barron Erythrocyte distribution width (RBC) [Ratio] 13.2 % Normal 11.0-15.0 [facility] Comment on above: Performed By: #### C BC #### [facility] [address] [place] [address] Dr. Gama Barron Hematocrit (Bld) [Volume fraction] 39.5 % Normal 36.0-48.0 [facility] Comment on above: Performed By: #### C BC #### [facility] [address] [place] [address] Dr. Gama Barron Hemoglobin (Bld) [Mass/Vol] 13.5 g/dL Normal 12.0-16.0 [facility] Comment on above: Performed By: #### C BC #### [facility] [address] [place] [address] Dr. Gama Barron IG # 0.03 10e3/ul Normal 0.00-0.03 [facility] Comment on above: Performed By: #### C BC #### [facility] [address] [place] [address] Dr. Gama Barron IG % 0.3 % Normal 0.0-0.5 [facility] Comment on above: Performed By: #### C BC #### [facility] [address] [place] [address] Dr. Gama Barron LYMPH # 2.9 103/ul Normal 1.2-3.8 [facility] Comment on above: Performed By: #### C BC #### [facility] [address] [place] [address] Dr. Gama Barron Lymphocytes/100 WBC (Bld) 25.8 % Normal 20.5-60.0 [facility] Comment on above: Performed By: #### C BC #### [facility] [address] [place] [address] Dr. Gama Barron MANUAL DIFF REQ NO Normal [facility] Comment on above: Performed By: #### C BC #### [facility] [address] [place] [address] Dr. Gama Barron MCH (RBC) [Entitic mass] 31.3 pg Normal 26.7-34.0 [facility] Comment on above: Performed By: #### C BC #### [facility] [address] [place] [address] Dr. Gama Barron MCHC (RBC) [Mass/Vol] 34.2 g/dL Normal 29.9-35.2 [facility] Comment on above: Performed By: #### C BC #### [facility] [address] [place] [address] Dr. Gama Barron MCV (RBC) [Entitic vol] 91.6 fL Normal 81.0-99.0 [facility] Comment on above: Performed By: #### C BC #### [facility] [address] [place] [address] Dr. Gama Barron MONO # 0.6 103/ul Normal 0.3-0.8 [facility] Comment on above: Performed By: #### C BC #### [facility] [address] [place] [address] Dr. Gama Barron Monocytes/100 WBC (Bld) 5.1 % Normal 1.7-12.0 [facility] Comment on above: Performed By: #### C BC #### [facility] [address] [place] [address] Dr. Gama Barron NEUT # 7.0 103/ul Critically high 1.4-6.5 [facility] Comment on above: Performed By: #### C BC #### [facility] [address] [place] [address] [address] Gama Barron Neutrophils/100 WBC (Bld) 62.8 % Normal 43.0-75.0 [facility] Comment on above: Performed By: #### C BC #### [facility] [address] [place] [address] [address] Gama Barron Platelet mean volume (Bld) [Entitic vol] 8.6 fL Critically low 9.5-13.5 [facility] Comment on above: Performed By: #### C BC #### [facility] [address] [place] [address] [address] Gama Barron PLT 383 103/ul Normal 150-450 [facility] Comment on above: Performed By: #### C BC #### [facility] [address] [place] [address] Dr. Gama Barron RBC 4.31 106/ul Normal 4.20-5.40 [facility] Comment on above: Performed By: #### C BC #### [facility] [address] [place] [address] Dr. Gama Barron WBC 11.1 103/ul Critically high 4.0-11.0 [facility] Comment on above: Performed By: #### C BC #### [facility] [address] [place] [address] Dr. Gama Barron FREE T3on 04-25-2023 FREE T3 2.59 pg/mlL Normal 2.18-3.98 [facility] Comment on above: Performed By: #### F T3, TSH, CMP, LIPID, T4 #### [facility] [address] [place] [address] Dr. Gama Barron GLYCOHEMOGLOBIN A1Con 2022 ADA RECOMMENDATION SEE BELOW Normal [facility] Comment on above: Result Comment: ADA RECOMMENDED LIMIT 4.0 - 6.0 ADA THERAPEUTIC TARGET < 7.0 ACTION SUGGESTED > 7.0 Performed By: #### A 1C #### [facility] [address] [place] [address] Dr. Gama Barron Glucose [Mass/Vol] 103 mg/dL Normal [facility] Comment on above: Performed By: #### A 1C #### [facility] [address] [place] [address] [address] Gama Barron HbA1c (Bld) [Mass fraction] 5.2 % Normal 4.5-6.2 [facility] Comment on above: Performed By: #### A 1C #### [facility] [address] [place] [address] [address] Gama Barron IRONon 04-25-2023 Iron [Mass/Vol] 102.0 ug/dL Normal 50.0-170.0 [facility] Comment on above: Performed By: #### V ITAD, IRON #### [facility] [address] [place] [address] Dr. Gama Barron LIPID PROFILEon 04-25-2023 CHOL-HDL RATIO NORM SEE BELOW Normal [facility] Comment on above: Result Comment: 3.3 - 4.4 LOW RISK 4.4 - 7.1 AVERAGE RISK 7.1 - 11.0 MODERATE RISK >11.0 HIGH RISK Performed By: #### F T3, TSH, CMP, LIPID, T4 #### [facility] [address] [place] [address] [address] Gama Barron Cholesterol [Mass/Vol] 193 mg/dL Normal <=200 [facility] Comment on above: Performed By: #### F T3, TSH, CMP, LIPID, T4 #### [facility] [address] [place] [address] [address] Gama Barron Cholesterol in HDL [Mass/Vol] 39 mg/dL Critically low 40-60 [facility] Comment on above: Performed By: #### F T3, TSH, CMP, LIPID, T4 #### [facility] [address] [place] [address] [address] Gama Barron Cholesterol in LDL [Mass/Vol] 115.6 mg/dL Normal [facility] Comment on above: Performed By: #### F T3, TSH, CMP, LIPID, T4 #### [facility] [address] [place] [address] [address] Gama Barron Cholesterol.total/Ch olesterol in HDL [Mass ratio] 4.9 {ratio} Normal [facility] Comment on above: Performed By: #### F T3, TSH, CMP, LIPID, T4 #### [facility] [address] [place] [address] [address] Gama Barron HDL NORMAL > or = 60 mg/dl - LOW CARDIOVASCULAR RISK <40 mg/dl - HIGH CARDIOVASCULAR RISK Normal [facility] Comment on above: Performed By: #### F T3, TSH, CMP, LIPID, T4 #### [facility] [address] [place] [address] Dr. Gama Barron LDL CALC NORMAL SEE BELOW Normal [facility] Comment on above: Result Comment: <100 mg/dl OPTIMAL 100 - 129 mg/dl NEAR OR ABOVE OPTIMAL 130 - 159 mg/dl BORDERLINE HIGH 160 - 189 mg/dl HIGH >190 mg/dl VERY HIGH Performed By: #### F T3, TSH, CMP, LIPID, T4 #### [facility] [address] [place] [address] Dr. Gama Barron Triglyceride [Mass/Vol] 192 mg/dL Critically high <=150 [facility] Comment on above: Performed By: #### F T3, TSH, CMP, LIPID, T4 #### [facility] [address] [place] [address] Dr. Gama Barron VLDL CALC 38.4 mg/dL Normal [facility] Comment on above: Performed By: #### F T3, TSH, CMP, LIPID, T4 #### [facility] [address] [place] [address] Dr. Gama Barron PROF 14(COMP METB)on 023 Albumin [Mass/Vol] 3.3 g/dL Critically low 3.4-5.0 [facility] Comment on above: Performed By: #### F T3, TSH, CMP, LIPID, T4 #### [facility] [address] [place] [address] Dr. Gama Barron Albumin/Globulin [Mass ratio] 0.9 {ratio} Normal [facility] Comment on above: Performed By: #### F T3, TSH, CMP, LIPID, T4 #### [facility] [address] [place] [address] [address] Gama Barron ALP [Catalytic activity/Vol] 88 U/L Normal 46-116 [facility] Comment on above: Performed By: #### F T3, TSH, CMP, LIPID, T4 #### [facility] [address] [place] [address] [address] Gama Barron ALT [Catalytic activity/Vol] 19 U/L Normal 14-59 [facility] Comment on above: Performed By: #### F T3, TSH, CMP, LIPID, T4 #### [facility] [address] [place] [address] [address] Gama Barron Anion gap [Moles/Vol] 12.2 mmol/L Normal [facility] Comment on above: Performed By: #### F T3, TSH, CMP, LIPID, T4 #### [facility] [address] [place] [address] Dr. Gama Barron AST [Catalytic activity/Vol] 13 U/L Critically low 15-37 [facility] Comment on above: Performed By: #### F T3, TSH, CMP, LIPID, T4 #### [facility] [address] [place] [address] [address] Gama Barron Bilirubin [Mass/Vol] 0.3 mg/dL Normal 0.2-1.0 [facility] Comment on above: Performed By: #### F T3, TSH, CMP, LIPID, T4 #### [facility] [address] [place] [address] [address] Gama Barron Calcium [Mass/Vol] 8.6 mg/dL Normal 8.5-10.1 [facility] Comment on above: Performed By: #### F T3, TSH, CMP, LIPID, T4 #### [facility] [address] [place] [address] [address] Gama Barron Chloride [Moles/Vol] 102 mmol/L Normal 98-107 [facility] Comment on above: Performed By: #### F T3, TSH, CMP, LIPID, T4 #### [facility] [address] [place] [address] [address] Gama Barron CO2 [Moles/Vol] 29.2 mmol/L Normal 21.0-32.0 [facility] Comment on above: Performed By: #### F T3, TSH, CMP, LIPID, T4 #### [facility] [address] [place] [address] [address] Gama Barron Creatinine [Mass/Vol] 0.75 mg/dL Normal 0.55-1.02 [facility] Comment on above: Performed By: #### F T3, TSH, CMP, LIPID, T4 #### [facility] [address] [place] [address] [address] Gama Barron EGFR-AF ITALIAN >60 Normal >=60 [facility] Comment on above: Performed By: #### F T3, TSH, CMP, LIPID, T4 #### [facility] [address] [place] [address] Dr. Gama Barron EGFR-NON AF ITALIAN >60 Normal >=60 [facility] Comment on above: Performed By: #### F T3, TSH, CMP, LIPID, T4 #### [facility] [address] [place] [address] Dr. Gama Barron Globulin (S) [Mass/Vol] 3.7 g/dL Normal [facility] Comment on above: Performed By: #### F T3, TSH, CMP, LIPID, T4 #### [facility] [address] [place] [address] Dr. Gama Barron Glucose [Mass/Vol] 93 mg/dL Normal 74-106 [facility] Comment on above: Performed By: #### F T3, TSH, CMP, LIPID, T4 #### [facility] [address] [place] [address] Dr. Gama Barron Potassium [Moles/Vol] 4.4 mmol/L Normal 3.5-5.1 [facility] Comment on above: Performed By: #### F T3, TSH, CMP, LIPID, T4 #### [facility] [address] [place] [address] Dr. Gama Barron Protein [Mass/Vol] 7.0 g/dL Normal 6.4-8.2 [facility] Comment on above: Performed By: #### F T3, TSH, CMP, LIPID, T4 #### [facility] [address] [place] [address] Dr. Gama Barron Sodium [Moles/Vol] 139 mmol/L Normal 136-145 [facility] Comment on above: Performed By: #### F T3, TSH, CMP, LIPID, T4 #### [facility] [address] [place] [address] Dr. Gama Barron Urea nitrogen [Mass/Vol] 8.0 mg/dL Normal 7.0-18.0 [facility] Comment on above: Performed By: #### F T3, TSH, CMP, LIPID, T4 #### [facility] [address] [place] [address] Dr. Gama Barron Urea nitrogen/Creatinine [Mass ratio] 10.7 mg/mg Normal [facility] Comment on above: Performed By: #### F T3, TSH, CMP, LIPID, T4 #### [facility] [address] [place] [address] Dr. Gama Barron T4on 04-25-2023 T4 [Mass/Vol] 7.20 ug/dL Normal 4.80-13.90 [facility] Comment on above: Performed By: #### F T3, TSH, CMP, LIPID, T4 #### [facility] [address] [place] [address] Dr. Gama Barron TSHon 04-25-2023 TSH 2.554 uIU/mL Normal 0.358-3.740 [facility] Comment on above: Performed By: #### F T3, TSH, CMP, LIPID, T4 #### [facility] [address] [place] [address] Dr. Gama Barron VITAMIN D 25 OHon 04-25-2023 VIT D 25-OH 27.5 ng/mL Normal [facility] Comment on above: Performed By: #### V ITAD, IRON #### [facility] [address] [place] [address] Dr. Gama Barron VIT D RANGES SEE BELOW Normal [facility] Comment on above: Result Comment: <20 ng/mL Vit D deficient 20 - <30 ng/mL Vit D insufficient 30 - 100 ng/mL Vit D sufficient >100 ng/mL Potential Toxicity Performed By: #### V ITAD, IRON #### [facility] [address] [place] [address] Dr. Gama Barron Vital Signs Date Time Vital Sign Value Performing Clinician Faci lity 04-22-2025 01:00-0400 Body height 167.64 cm Tasha Chidi [place] [facility] 04-22-2025 01:00-0400 Body mass index (BMI) [Ratio] 33.8 kg/m2 Tasha Murillo [place] [facility] 04-22-2025 01:00-0400 Body surface area Derived from formula 2.1 m2 Tasha Murillo [place] [facility] 04-22-2025 01:00-0400 Body weight 95.07 kg [facility] 01:00-0400 Diastolic blood pressure 76 mm[Hg] Tasha Murillo [place] [facility] 04-22-2025 01:00-0400 Heart rate 82 /min Tasha Murillo [place] [facility] 04-22-2025 01:00-0400 SaO2% (BldA) [Mass fraction] 96 % Tasha Chidi [place] [facility] 04-22-2025 01:00-0400 Systolic blood pressure 136 mm[Hg] Tasha Murillo [place] [employer] [facility] Encounters Encounter Date Encounter Type Care Provider Facility Start: 04-22-2025 Adult health examination Tasha Murillo [place] [facility] Start: 04-22-2025 Tasha Murillo [place] [facility] Start: 04-26-2023 Encounter for genera l adult medical examination without abnormal findings DR MELANIE HERRERA . [facility] Start: 04-25-2023 End: 04-26-[address] MELANIE HERRERA . Facility:[facility] Start: 04-25-2023 End: 04-26-2023 Encounter for general adult medical examination without abnormal findings DR MELANIE HERRERA . Facility:[facility] Start: 03-09-2023 End: 03-09-[address] DEMI ESPINOZA Facility:[facility] Start: 09-04-2022 End: 09-04-[address] MELANIE HERRERA . Facility:[facility] Start: 06-14-2017 End: 06-15-2017 Ambulatory DEFAULT PHYSICIAN Facility:[facility] Plan of Treatment Date Care Activity Detail Author Start: 04-22-2025 urinalysis, dipstick [facility] Start: 04-22-2025 InPerson; Emp Physic al Other InPerson; Emp Physical Other [place] [facility] Patient Education [place] [facility] Immunizations Immunization Date Immunization Notes Care Provider Milan nayak 09-04-2022 diphtheria, tetanus toxoids and pertussis vaccine Tasha Murillo [place] [facility] 05-06-2021 SARS-COV-2 (COVID-19 ) vaccine, mRNA, spike protein, LNP, preservative free, 30 mcg/0.3mL dose Tasha Murillo [place] [facility] 04-15-2021 SARS-COV-2 (COVID-19 ) vaccine, mRNA, spike protein, LNP, preservative free, 30 mcg/0.3mL dose Tasha Murillo [place] [facility] Payers Date Payer Category Payer Unknown [id number] [id number] [id number] 1977 Unknown [id number] 2.16.84 [id number] 1977 Unknown [id number] [id number] [id number] 1959 Unknown [id number] 1959 Unknown [id number] Unknown Self-pay [id number] Social History Date Type Detail Facility Tobacco Smoking Status [place] Current Every Day Smoker [place] - [facility] Sex Assigned At Unknown [place] - [facility] Medical Equipment Procedure Code Equipment Code Equipment Original Text Equi pment Identifier Dates Procedure Implant ([id number]) Evaluation note Note Date & Type Note Facility Evaluation note No assessment recorded. [place] - [facility] History general Narrative - Reported Note Date & Type Note Facility History general Narrative - Reported No medical history recorded. Gynecological HistoryNo gynecological history recorded. Obstetrics History GPAL:G 2 P 0 0 0 2 Living 2 Total 2 [place] - [facility] Summary Purpose Family History Relationship Description Onset Age of this Age Resolved Age Notes LastModified by Organization Details LastModified Time Father Malignant neoplasm of urinary bladder [email or web address] Not available 2024 08:41:38 Father Coronary arterioscler osis Not available 2024 08:44:18 Mother Disorder of gallbladder Not available 04/2025 08:43:43 Mother Coronary arterioscler osis [email or web address] Not available 2024 08:44:25 Mother Malignant tumor of breast [email or web address] Not available 2024 08:45:10 Mother Malignant neoplasm of lung [email or web address] Not available 2024 08:45:23 Advance Directives No Advanced Directives Records FoundNo Advanced Directives Records Found Additional Source Comments INFORMATION SOURCE (unrecogn ized section and content) DATE CREATED AUTHOR 05/23/2018 [facility] DATE CREATED AUTHOR AUTHOR'S RANDOLPH ATION 05/05/2023 [...] BE BASED ON THE PRIMARY CLINICAL RECORDS. [facility] [employer] provides no warranty or guarantee of the accuracy or completeness of information in this document.
[2025-06-07 08:43] LABS: Free T3 1.90 pg/mL (2.18-3.98); Thyroid Stimulating Hormone 2.293 uIU/mL (0.358-3.740)
== END 2025-06-07 07:53 | disposition home or self-care (01) ==
LOC: LAB 07:53
PROVIDERS: PCP Family Medicine; Visit Provider Family Medicine
DX: E03.9 Hypothyroidism, unspecified (principal)
CPT/HCPCS: 36415; 84436; 84443; 84481

== ENCOUNTER 2025-06-25 09:28 | Outpatient (OUT) | payer BC, SELFPAY ==
--- NOTE | 2025-06-25 | MR_ITS ---
The [address] [address] Patient Name: MYA MOREL MRN: [id number] date: 1975 Sex: F Assigned Patient Location: MRI Current Patient Location: MRI Accession/Order Number: [id number] Exam Date: 06/25/2025 11:35 Report Date: 06/25/2025 11:38 At the request of: AGUSTÍN TRUJILLO MD Procedure: MR angio abdomen wo con MRA of the abdomen without IV contrast. Reason for exam: Renal artery stenosis. COMPARISON: Ultrasound 05/09/2025. TECHNIQUE: [id number] imaging of the renal arteries were obtained. FINDINGS: Single renal arteries are identified without MRI evidence of renal artery stenosis. Abdominal aorta appears normal in caliber without aneurysm. Origin of the celiac artery as well as SMA appear unremarkable. Limited organ evaluation demonstrates no acute process. MR/MR angio abdomen wo con IMPRESSION: No MRA evidence of renal artery stenosis. Impression dictated by: Daniel Gutierrez Jr., D.ORah 06/25/2025 11:38 AM Dictation Location: [place] [address] Electronically authenticated by: [id number] Date: 06/25/2025 11:38
--- OUTSIDE RECORDS SUMMARY | 2025-06-25 09:48 | XMS_ITS | CCD ---
Author Organization [facility] Care Team Providers Care Patient Admitting Representative Name Role Phone PHYSICIAN, DEFAULT Unavailable Unavailable PHYSICIAN, DEFAULT Unavailable Unavailable SHARON ., DR NAVARRO Primary Care Unavailable SANTO ., TITO Admitting Unavailable SANTO ., TITO Attending Unavailable ASUNCION ., MR PAZ Consulting Unavailable HOY ., DR NAVARRO Consulting Unavailable HOY ., DR NAVARRO Attending Unavailable SHARON ., DR NAVARRO Admitting Unavailable SHARON ., DR NAVARRO Primary Care Unavailable OLGA, DR DEIM Cisneros Admitting Unavailabl e OLGA, DR DEMI Cisneros Consulting Unavailabl e OLGA, DR DEMI Cisneros Attending Unavailabl e SHARON ., DR NAVARRO Primary Care Unavailable MELANIE SOLANO Unavailable TOAN WATSON Attending Unavailable Medications Current Medications Medication Drug Class(es) [...] (1 source) Central alpha-2 Adrenergic 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 End: 025 take 1 tablet by mouth at bedtime [...] object(s), not elsewhere classified, initial encounter; Translations: [[facility] SHRP OB NOT ELSW CLASS INI] Onset: 03-13-2023 Episodic Esophageal disorders (1 source) Gastroesophageal reflux disease Onset: 12-02-2024 Chronic Mood disorders (1 source) Depressive disorder Onset: 12-02-2024 Chronic Open wounds of extremities (4 sources) Laceration without foreign body of left wrist, initial encounter; Translations: [LACERATION W/O FB LT WRIST INITIAL] Onset: 03-09-2023 Episodic Osteoarthritis (1 source) Osteoarthritis Onset: 12-02-2024 Chronic Peripheral and visceral atherosclerosis (2 sources) Atherosclerosis of renal artery; Translations: [Atherosclerosis of renal artery] Onset: 06-05-2025 Chronic Substance-related disorders (1 source) Nicotine dependence, [...] Test Name Value Interpretation Reference Range Facility Office Visiton 06-05-2025 Follow-up visit [id number] Erin Morel 1975 F Date Provider Department Center 06/05/2025 Lalit-TOAN WATSON CARD [facility] Family History Problem Relation Age of Onset Hypertension Mother Valvular heart disease Mother Hypertension Father Coronary artery disease Father Other Father Heart attack Maternal Grandmother Heart attack Maternal Grandfather Heart failure Paternal Grandfather Family Status - Relation Status Age at Mother Father Maternal Grandmother Maternal Grandfather Paternal Grandfather Level of Service:03838 NE OFFICE/OUTPATIENT NEW MODERATE MDM 45 MINUTES Normal [facility] hearing screening*on 025 Unknown Analyte Pass Invalid Interpretation Code [facility] urinalysis, dipstickon 04-22 Appearance (U) Clear Invalid Interpretation Code [email or web address] Color (U) Yellow Invalid Interpretation Code [facility] Glucose Ql (U) Negative Invalid Interpretation Code [facility] INSULINon 04-26-2023 Insulin 9.7 uIU/mL Normal 2.6-24.9 [facility] Comment on above: Performed By: #### I NSULIN #### [facility] [address] [place] [address] Dr. Gama Barron CBC AUTO DIFFon 04-25-2023 BASO # 0.1 103/ul Normal 0.0-0.1 [facility] Comment on above: Performed By: #### C BC #### [facility] [address] [place] [address] Dr. Gama Barron Basophils/100 WBC (Bld) 0.6 % Normal 0.2-2.0 [facility] Comment on above: Performed By: #### C BC #### [facility] [address] [place] [address] Dr. Gama Barron EO # 0.6 103/ul Normal 0.0-0.7 [facility] Comment on above: Performed By: #### C BC #### [facility] [address] [address] [address] Gama Barron Eosinophils/100 WBC (Bld) 5.4 % Normal 0.9-7.0 [facility] Comment on above: Performed By: #### C BC #### [facility] [address] [place] [address] Dr. Gama Barron Erythrocyte distribution width (RBC) [Ratio] 13.2 % Normal 11.0-15.0 [facility] Comment on above: Performed By: #### C BC #### [facility] [address] [place] [address] Dr. Gama Barron Hematocrit (Bld) [Volume fraction] 39.5 % Normal 36.0-48.0 [facility] Comment on above: Performed By: #### C BC #### [facility] [address] [place] [address] Dr. Gama Barron Hemoglobin (Bld) [Mass/Vol] 13.5 g/dL Normal 12.0-16.0 [facility] Comment on above: Performed By: #### C BC #### [facility] [address] [place] [address] Dr. Gama Barron IG # 0.03 10e3/ul Normal 0.00-0.03 [facility] Comment on above: Performed By: #### C BC #### [facility] [address] [place] [address] Dr. Gama Barron IG % 0.3 % Normal 0.0-0.5 [facility] Comment on above: Performed By: #### C BC #### [facility] [address] [place] [address] Dr. Gama Barron LYMPH # 2.9 103/ul Normal 1.2-3.8 [facility] Comment on above: Performed By: #### C BC #### [facility] [address] [place] [address] Dr. Gama Barron Lymphocytes/100 WBC (Bld) 25.8 % Normal 20.5-60.0 [facility] Comment on above: Performed By: #### C BC #### [facility] [address] [place] [address] Dr. Gama Barron MANUAL DIFF REQ NO Normal [facility] Comment on above: Performed By: #### C BC #### [facility] [address] [place] [address] Dr. Gama Barron MCH (RBC) [Entitic mass] 31.3 pg Normal 26.7-34.0 [facility] Comment on above: Performed By: #### C BC #### [facility] [address] [place] [address] Dr. Gama Barron MCHC (RBC) [Mass/Vol] 34.2 g/dL Normal 29.9-35.2 [facility] Comment on above: Performed By: #### C BC #### [facility] [address] [place] [address] Dr. Gama Barron MCV (RBC) [Entitic vol] 91.6 fL Normal 81.0-99.0 [facility] Comment on above: Performed By: #### C BC #### [facility] [address] [address] [address] Gama Barron MONO # 0.6 103/ul Normal 0.3-0.8 [facility] Comment on above: Performed By: #### C BC #### [facility] [address] [address] [address] Gama Barron Monocytes/100 WBC (Bld) 5.1 % Normal 1.7-12.0 [facility] Comment on above: Performed By: #### C BC #### [facility] [address] [address] [address] Gama Barron NEUT # 7.0 103/ul Critically high 1.4-6.5 [facility] Comment on above: Performed By: #### C BC #### [facility] [address] [place] [address] Dr. Gama Barron Neutrophils/100 WBC (Bld) 62.8 % Normal 43.0-75.0 [facility] Comment on above: Performed By: #### C BC #### [facility] [address] [place] [address] Dr. Gama Barron Platelet mean volume (Bld) [Entitic vol] 8.6 fL Critically low 9.5-13.5 [facility] Comment on above: Performed By: #### C BC #### [facility] [address] [address] [address] Gama Barron PLT 383 103/ul Normal 150-450 [facility] Comment on above: Performed By: #### C BC #### [facility] [address] [address] [address] Gama Barron RBC 4.31 106/ul Normal 4.20-5.40 [facility] Comment on above: Performed By: #### C BC #### [facility] [address] [address] [address] Gama Barron WBC 11.1 103/ul Critically high 4.0-11.0 [facility] Comment on above: Performed By: #### C BC #### [facility] [address] [address] [address] Gama Barron FREE T3on 04-25-2023 FREE T3 2.59 pg/mlL Normal 2.18-3.98 [facility] Comment on above: Performed By: #### F T3, TSH, CMP, LIPID, T4 #### [facility] [address] [place] [address] Dr. Gama Barron GLYCOHEMOGLOBIN A1Con 2022 ADA RECOMMENDATION SEE BELOW Normal [facility] Comment on above: Result Comment: ADA RECOMMENDED LIMIT 4.0 - 6.0 ADA THERAPEUTIC TARGET < 7.0 ACTION SUGGESTED > 7.0 Performed By: #### A 1C #### [facility] [address] [place] [address] Dr. Gama Barron Glucose [Mass/Vol] 103 mg/dL Normal [facility] Comment on above: Performed By: #### A 1C #### [facility] [address] [place] [address] Dr. Gama Barron HbA1c (Bld) [Mass fraction] 5.2 % Normal 4.5-6.2 [facility] Comment on above: Performed By: #### A 1C #### [facility] [address] [place] [address] Dr. Gama Barron IRONon 04-25-2023 Iron [Mass/Vol] 102.0 ug/dL Normal 50.0-170.0 [facility] Comment on above: Performed By: #### V ITAD, IRON #### [facility] [address] [place] [address] Dr. Gama Barron LIPID PROFILEon 04-25-2023 CHOL-HDL RATIO NORM SEE BELOW Normal [facility] Comment on above: Result Comment: 3.3 - 4.4 LOW RISK 4.4 - 7.1 AVERAGE RISK 7.1 - 11.0 MODERATE RISK >11.0 HIGH RISK Performed By: #### F T3, TSH, CMP, LIPID, T4 #### [facility] [address] [place] [address] Dr. Gama Barron Cholesterol [Mass/Vol] 193 mg/dL Normal <=200 [facility] Comment on above: Performed By: #### F T3, TSH, CMP, LIPID, T4 #### [facility] [address] [address] [address] Gama Barron Cholesterol in HDL [Mass/Vol] 39 mg/dL Critically low 40-60 [facility] Comment on above: Performed By: #### F T3, TSH, CMP, LIPID, T4 #### [facility] [address] [address] [address] Gama Barron Cholesterol in LDL [Mass/Vol] 115.6 mg/dL Normal [facility] Comment on above: Performed By: #### F T3, TSH, CMP, LIPID, T4 #### [facility] [address] [address] [address] Gama Barron Cholesterol.total/Ch olesterol in HDL [Mass ratio] 4.9 {ratio} Normal [facility] Comment on above: Performed By: #### F T3, TSH, CMP, LIPID, T4 #### [facility] [address] [address] [address] Gama Barron HDL NORMAL > or = 60 mg/dl - LOW CARDIOVASCULAR RISK <40 mg/dl - HIGH CARDIOVASCULAR RISK Normal [facility] Comment on above: Performed By: #### F T3, TSH, CMP, LIPID, T4 #### [facility] [address] [address] [address] Gama Barron LDL CALC NORMAL SEE BELOW Normal [facility] Comment on above: Result Comment: <100 mg/dl OPTIMAL 100 - 129 mg/dl NEAR OR ABOVE OPTIMAL 130 - 159 mg/dl BORDERLINE HIGH 160 - 189 mg/dl HIGH >190 mg/dl VERY HIGH Performed By: #### F T3, TSH, CMP, LIPID, T4 #### [facility] [address] [address] [address] Gama Barron Triglyceride [Mass/Vol] 192 mg/dL Critically high <=150 [facility] Comment on above: Performed By: #### F T3, TSH, CMP, LIPID, T4 #### [facility] [address] [address] [address] Gama Barron VLDL CALC 38.4 mg/dL Normal [facility] Comment on above: Performed By: #### F T3, TSH, CMP, LIPID, T4 #### [facility] [address] [address] [address] Gama Barron PROF 14(COMP METB)on 023 Albumin [Mass/Vol] 3.3 g/dL Critically low 3.4-5.0 [facility] Comment on above: Performed By: #### F T3, TSH, CMP, LIPID, T4 #### [facility] [address] [place] [address] Dr. Gama Barron Albumin/Globulin [Mass ratio] 0.9 {ratio} Normal [facility] Comment on above: Performed By: #### F T3, TSH, CMP, LIPID, T4 #### [facility] [address] [place] [address] Dr. Gama Barrno ALP [Catalytic activity/Vol] 88 U/L Normal 46-116 [facility] Comment on above: Performed By: #### F T3, TSH, CMP, LIPID, T4 #### [facility] [address] [address] [address] Gama Barron ALT [Catalytic activity/Vol] 19 U/L Normal 14-59 [facility] Comment on above: Performed By: #### F T3, TSH, CMP, LIPID, T4 #### [facility] [address] [place] [address] Dr. Gama Barron Anion gap [Moles/Vol] 12.2 mmol/L Normal [facility] Comment on above: Performed By: #### F T3, TSH, CMP, LIPID, T4 #### [facility] [address] [address] [address] Gama Barron AST [Catalytic activity/Vol] 13 U/L Critically low 15-37 [facility] Comment on above: Performed By: #### F T3, TSH, CMP, LIPID, T4 #### [facility] [address] [address] [address] Gama Barron Bilirubin [Mass/Vol] 0.3 mg/dL Normal 0.2-1.0 [facility] Comment on above: Performed By: #### F T3, TSH, CMP, LIPID, T4 #### [facility] [address] [address] [address] Gama Barron Calcium [Mass/Vol] 8.6 mg/dL Normal 8.5-10.1 [facility] Comment on above: Performed By: #### F T3, TSH, CMP, LIPID, T4 #### [facility] [address] [address] [address] Gama Barron Chloride [Moles/Vol] 102 mmol/L Normal 98-107 [facility] Comment on above: Performed By: #### F T3, TSH, CMP, LIPID, T4 #### [facility] [address] [place] [address] Dr. Gama Barron CO2 [Moles/Vol] 29.2 mmol/L Normal 21.0-32.0 [facility] Comment on above: Performed By: #### F T3, TSH, CMP, LIPID, T4 #### [facility] [address] [place] [address] Dr. Gama Barron Creatinine [Mass/Vol] 0.75 mg/dL Normal 0.55-1.02 [facility] Comment on above: Performed By: #### F T3, TSH, CMP, LIPID, T4 #### [facility] [address] [place] [address] Dr. Gama Barron EGFR-AF GUYANESE >60 Normal >=60 [facility] Comment on above: Performed By: #### F T3, TSH, CMP, LIPID, T4 #### [facility] [address] [place] [address] Dr. Gama Barron EGFR-NON AF GUYANESE >60 Normal >=60 [facility] Comment on above: Performed By: #### F T3, TSH, CMP, LIPID, T4 #### [facility] [address] [place] [address] Dr. Gama Barron Globulin (S) [Mass/Vol] 3.7 g/dL Normal [facility] Comment on above: Performed By: #### F T3, TSH, CMP, LIPID, T4 #### [facility] [address] [place] [address] Dr. Gama Barron Glucose [Mass/Vol] 93 mg/dL Normal 74-106 [facility] Comment on above: Performed By: #### F T3, TSH, CMP, LIPID, T4 #### [facility] [address] [address] [address] Gama Barron Potassium [Moles/Vol] 4.4 mmol/L Normal 3.5-5.1 [facility] Comment on above: Performed By: #### F T3, TSH, CMP, LIPID, T4 #### [facility] [address] [address] [address] Gama Barron Protein [Mass/Vol] 7.0 g/dL Normal 6.4-8.2 [facility] Comment on above: Performed By: #### F T3, TSH, CMP, LIPID, T4 #### [facility] [address] [address] [address] Gama Barron Sodium [Moles/Vol] 139 mmol/L Normal 136-145 [facility] Comment on above: Performed By: #### F T3, TSH, CMP, LIPID, T4 #### [facility] [address] [address] [address] Gama Barron Urea nitrogen [Mass/Vol] 8.0 mg/dL Normal 7.0-18.0 [facility] Comment on above: Performed By: #### F T3, TSH, CMP, LIPID, T4 #### [facility] [address] [address] [address] Gama Barron Urea nitrogen/Creatinine [Mass ratio] 10.7 mg/mg Normal [facility] Comment on above: Performed By: #### F T3, TSH, CMP, LIPID, T4 #### [facility] [address] [address] [address] Gama Barron T4on 04-25-2023 T4 [Mass/Vol] 7.20 ug/dL Normal 4.80-13.90 [facility] Comment on above: Performed By: #### F T3, TSH, CMP, LIPID, T4 #### [facility] [address] [address] [address] Gama Barron TSHon 04-25-2023 TSH 2.554 uIU/mL Normal 0.358-3.740 [facility] Comment on above: Performed By: #### F T3, TSH, CMP, LIPID, T4 #### [facility] [address] [place] [address] Dr. Gama Barron VITAMIN D 25 OHon 04-25-2023 VIT D 25-OH 27.5 ng/mL Normal [facility] Comment on above: Performed By: #### V ITAD, IRON #### [facility] [address] [address] [address] Gama Barron VIT D RANGES SEE BELOW Normal [facility] Comment on above: Result Comment: <20 ng/mL Vit D deficient 20 - <30 ng/mL Vit D insufficient 30 - 100 ng/mL Vit D sufficient >100 ng/mL Potential Toxicity Performed By: #### V ITAD, IRON #### [facility] [address] [place] [address] Dr. Gama Barron Vital Signs Date Time Vital Sign Value Performing Clinician Faci lity 04-22-2025 01:00-0400 Body height 167.64 cm [facility] [place] [facility] 01:00-0400 Body mass index (BMI) [Ratio] 33.8 kg/m2 Tasha Murillo [place] [facility] 04-22-2025 01:00-0400 Body surface area Derived from formula 2.1 m2 [facility]-22-[facility]25 01:00-0400 Body weight 95.07 kg Tasha Murillo [place] [facility] 04-22-2025 01:00-0400 Diastolic blood pressure 76 mm[Hg] Tasha Murillo [place] [facility] 04-22-2025 01:00-0400 Heart rate 82 /min Tasha Murillo [place] [facility] 04-22-2025 01:00-0400 SaO2% (BldA) [Mass fraction] 96 % Tasha Murillo [place] [facility] 04-22-2025 01:00-0400 Systolic blood pressure 136 mm[Hg] Tasha Murillo [place] [facility] Encounters Encounter Date Encounter Type Care Provider Facility Start: 06-05-2025 End: 06-05-2025 ambulatory [facility] Start: 04-22-2025 Adult health examination Tasha Murillo [place] [facility] Start: 04-22-2025 Tasha Murillo [facility] Start: 04-26-2023 Encounter for genera l adult medical examination without abnormal findings DR MELANIE SOLANO . [facility] Start: 04-25-2023 End: 04-26-[address] MELANIE SOLANO . Facility:[facility] Start: 04-25-2023 End: 04-26-2023 Encounter for general adult medical examination without abnormal findings DR MELANIE SOLANO . Facility:[facility] Start: 03-09-2023 End: 03-09-[address] DEMI ESPINOZA Facility:[facility] Start: 09-04-2022 End: 09-04-[address] MELANIE SOLANO . Facility:[facility] Start: 06-14-2017 End: 06-15-2017 Ambulatory DEFAULT PHYSICIAN Facility:[facility] Plan of Treatment Date Care Activity Detail Author Start: 04-22-2025 urinalysis, dipstick [facility] Start: 04-22-2025 InPerson; Emp Physic al Other InPerson; Emp Physical Other [place] [facility] Patient Education IN [facility] Immunizations Immunization Date Immunization Notes Care Provider Milan nayak 09-04-2022 diphtheria, tetanus toxoids and pertussis vaccine Tasha Murillo [place] [facility] 05-06-2021 SARS-COV-2 (COVID-19 ) vaccine, mRNA, spike protein, LNP, preservative free, 30 mcg/0.3mL dose Tasha Murillo [place] [facility] 04-15-2021 SARS-COV-2 (COVID-19 ) vaccine, mRNA, spike protein, LNP, preservative free, 30 mcg/0.3mL dose Tasha Murillo [place] [facility] Payers Date Payer Category Payer Unknown [id number] [id number] [id number] 1975 Unknown [id number] [id number] [id number] 1975 Unknown [id number] [id number] [id number] 1959 Unknown [id number] 1957 Unknown [id number] Unknown Self-pay [id number] Social History Date Type Detail Facility Tobacco Smoking Status TNIS Current Every Day Smoker [place] [facility] Sex Assigned At Unknown [place] - [facility] Medical Equipment Procedure Code Equipment Code Equipment Original Text Equi pment Identifier Dates Procedure Implant ([id number]) Progress note 06-05-2025 Note Date & Type Note Facility 06-05-2025 Note [facility] Note Chief Complaint: New patient here to establish care. Ref from Dr. Solano for renal artery stenosis. She had renal duplex, labs, and echo last month. She smokes [address] Solano ordered MRA renal arteries but this has not been scheduled yet. She denies chest pain, SOB, and palpitations. HPI: Erin Morel is a 49 y.o. female with a history of recently diagnosed high blood pressure who is here to see me due to an abnormal renal ultrasound The patient did not have a history of hypertension until about a year ago. Her family physician started her on medications however the blood pressure was not improved. Medications were increased. Renal ultrasound was ordered. This was abnormal. The patient is essentially asymptomatic; she has no chest pain or shortness of breath, she denies palpitations, she has no paroxysmal, dyspnea or lower extremity edema. Social history: She used to drink excessive coffee per her description about 2 pots a day, she denies drug use. She denies alcohol use. 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 She does use prescribed diclofenac for arthritic pain. She denies [id number] use of nonsteroidal anti-inflammatory drugs Family history: There is family history of hypertension in her parents and siblings. No history of premature coronary artery disease. Cardiology ROS: Review of Systems All other systems reviewed and are negative. Past Medical History She has no past medical history on file. Surgical History She has no past surgical history on file. Social History She has no history on file for tobacco use, alcohol use, and drug use. Family History Family History[1] Allergies Patient has no allergy information on record. Medications Current Medications[2] Last Recorded Vitals BP 136/73 (BP Location: Right arm, Patient Position: Sitting) Pulse 89 Ht 1.676 m (5' 6 ) Wt 96.2 kg (212 lb) SpO2 96% BMI 34.22 kg/m??? Physical Examination: GENERAL: alert and oriented x3, well developed, in no acute distress. HEAD: atraumatic, normocephalic. EYES: ADAM, EOMI. NECK: trachea midline, no JVD present, no carotid bruits present. CARDIAC: S1, S2 present. RRR. No murmur, rubs, or gallops. RESPIRATORY: CTAB, no increased effort of breathing, no rales, rhonchi, or wheezing. ABDOMEN: soft, nontender, nondistended. EXTREMITIES: no lower extremity edema, peripheral pulses are 2+ bilaterally. No rash/skin discoloration present. NEURO: strength/sensation equal and symmetric in bilateral upper and lower extremities. PSYCH: appropriate mood, affect, and judgement. Investigations: Labs: 05/09/2025 BUN 11, creatinine 0.80 Echocardiogram 05/09/2025: Global left ventricular systolic function is normal; visually estimated ejection fraction is 55 to 60% Normal right ventricular size and systolic function Normal diastolic function No significant valvular abnormalities Renal ultrasound: Clinical indication hypertension Impression: 1. Findings are concerning for bilateral hemodynamically significant renal artery stenosis. Consider follow-up with MRA/CTA as clinically relevant 2. No renal calculus or hydronephrosis Assessment: Essential hypertension Suggestion of renal artery stenosis on renal duplex Smoker Family history of HTN Plan: She has had multiple labs ordered by her primary care physician; I will await the results of her MRI before ordering additional tests to exclude secondary causes of hypertension I had a lengthy discussion with the patient and her regarding the association of renal artery stenosis with refractory hypertension. I described both fibromuscular dysplasia as well as atherosclerotic causes of renal artery stenosis. I touched briefly on the results of the coral trial that showed no improvement in hypertension control with renal artery stenting. We will await the results of renal MRA to confirm the presence of renal artery stenosis, the severity, and the laterality If indeed she has bilateral renal artery stenosis that are significant, would strongly recommend discontinuing her angiotensin receptor zenia; VICTORINA inhibitors and ARB's are contraindicated in bilateral renal artery stenosis as they may cause acute kidney injury and potentially lead to kidney failure Continue current medical therapy for essential hypertension; if blood pressure readings remain difficult to control, I would recommend initiation of a diuretic which should be a cornerstone of treatment of refractory hypertension. We would likely consider either chlorthalidone or spironolactone. She is to return to the office following the MRA. Toan Watson MD, MPH, FACC, [facility], [facility] Interventional Cardiology Pager Email: [email or web address] [1] No family history on file. [2] No current outpatient medications on file. [facility] Evaluation note Note Date & Type Note Facility Evaluation note No assessment recorded. [place] - [facility] History general Narrative - Reported Note Date & Type Note Facility History general Narrative - Reported No medical history recorded. Gynecological HistoryNo gynecological history recorded. Obstetrics History GPAL:G 2 P 0 0 0 2 Living 2 Total 2 [place] - [facility] Summary Purpose Family History No Family History Records Found Relationship Description Onset Age of this Age Resolved Age Notes LastModified by Organization Details LastModified Time Father Malignant neoplasm of urinary bladder [email or web address] Not available 2024 08:41:38 Father Coronary arterioscler osis [email or web address] Not available 2024 08:44:18 Mother Disorder of gallbladder [email or web address] Not available 04/2025 08:43:43 Mother Coronary arterioscler osis Not available 2024 08:44:25 Mother Malignant tumor of breast Not available 2024 08:45:10 Mother Malignant neoplasm of lung [email or web address] Not available 2024 08:45:23 Advance Directives No Advanced Directives Records FoundNo Advanced Directives Records FoundNo Advanced Directives Records Found Additional Source Comments INFORMATION SOURCE (unrecogn ized section and content) DATE CREATED AUTHOR 05/23/2018 [facility] DATE CREATED AUTHOR AUTHOR'S ORGANIZ ATION 05/05/2023 [facility] DATE CREATED AUTHOR AUTHOR'S ORGANIZ ATION 06/09/2025 [facility] FOR RECORDS PERTAINING TO PATIENTS WHO ARE [...] BE BASED ON THE PRIMARY CLINICAL RECORDS. [employer] [facility]. provides no warranty or guarantee of the accuracy or completeness of information in this document.
== END 2025-06-25 09:29 | disposition home or self-care (01) ==
LOC: MRI 09:28
PROVIDERS: PCP Family Medicine; Visit Provider Internal Medicine Interventional Cardiology
DX: I70.1 Atherosclerosis of renal artery (principal)
CPT/HCPCS: C8901